=== PATIENT | female | born 1995 | race American Indian/Alaskan Native ===

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

== ENCOUNTER 2017-07-26 20:25 | Observation (INO) | payer MEDICAID ==
[2017-07-26] MEDS ORDERED: Albuterol/Ipratropium 3.0-0.5 MG/3 ML Neb Soln NEB ONE (20:43)
[2017-07-26] MEDS ORDERED: LORazepam 2 MG/ML Syringe IVPUSH ONE ×2 (20:45→22:04)
[2017-07-26] MEDS ORDERED: methylPREDNISolone Sodium Succinate 125 MG/2 ML SDV IVPUSH ONE (20:46)
--- NOTE | 2017-07-26 21:07 | EDM.PDOC ---
<Toyin Ervin - Last Filed: 07/26/17 21:15> ED HPI GENERAL MEDICAL PROBLEM - General Chief Complaint: Respiratory Problem Stated Complaint: [id number] SEVERE COUGHING AND CHEST PAIN Time Seen by Provider: 07/26/17 20:50 - Related Data Allergies Allergy/AdvReac Type Severity Reaction Status Date / Time amoxicillin trihydrate Allergy Intermediate Hives Verified 07/27/17 00:05 [From Augmentin] potassium clavulanate Allergy Intermediate Hives Verified 07/27/17 00:05 [From Augmentin] Penicillins Allergy Unknown Rash Verified 07/27/17 00:05 Home Meds: Home Meds Albuterol [IJD: Albuterol] 2.5 mg INH Q4H PRN 10/03/16 [History] Albuterol [Proventil HFA] 2 puff INH Q4H PRN 10/03/16 [History] medroxyPROGESTERone Acetate [Depo-Provera] 150 mg IM ASDIRECTED 10/03/16 [ History] Course - Vital Signs Last Recorded V/S: Last Vital Signs Temp 36.7 C 07/27/17 00:34 Pulse 121 H 07/27/17 00:34 Resp 24 H 07/27/17 00:34 BP 108/53 L 07/27/17 00:34 Pulse Ox 96 07/27/17 00:34 - Orders/Labs/Meds Orders: Active Orders 24 hr Category Date Time Status RT Aerosol Therapy [RC] ASDIRECTED Care 07/26/17 20:44 Active INFLUENZA A+B AG SCREEN [RM] Stat Lab 07/26/17 20:53 Ordered Labs: Laboratory Tests 07/26/17 07/26/17 07/26/17 Range/Units 21:04 21:04 21:04 WBC 8.6 (5.0-10.0) 10^3/uL RBC 5.07 (4.2-5.4) 10^6/uL Hgb 14.7 (12.0-16.0) g/dL Hct 44.9 (37.0-47.0) % MCV 88.6 D (80-100) fL MCH 29.0 (27.0-34.0) pg MCHC 32.7 L (33.0-35.0) g/dL Plt Count 240 (150-450) 10^3/uL Neut % (Auto) 58.4 (42.2-75.2) % Lymph % (Auto) 26.0 (20.5-50.1) % Lucas % (Auto) 11.4 H (2-8) % Eos % (Auto) 3.7 H (1.0-3.0) % Baso % (Auto) 0.5 (0.0-1.0) % D-Dimer, Quantitative 116 (0-400) ng/mL Sodium 137 (135-145) mmol/L Potassium 3.7 (3.6-5.0) mmol/L Chloride 106 (101-111) mmol/L Carbon Dioxide 22.0 (21.0-31.0) mmol/L Anion Gap 12.7 BUN 8 (7-18) mg/dL Creatinine 0.7 (0.6-1.3) mg/dL Est Cr Clr Drug Dosing 101.39 mL/min Estimated GFR (MDRD) > 60 BUN/Creatinine Ratio 11.42 Glucose 85 (74-105) mg/dL Calcium 9.0 (8.4-10.2) mg/dl Total Bilirubin 0.3 (0.2-1.0) mg/dL AST 32 (10-42) IU/L ALT 23 (10-60) IU/L Alkaline Phosphatase 96 (42-121) IU/L Total Protein 8.0 (6.7-8.2) g/dl Albumin 4.4 (3.2-5.5) g/dl Globulin 3.6 Albumin/Globulin Ratio 1.22 Meds: Medications Discontinued Medications Generic Name Dose Route Start Last Admin Trade Name Pedroq PRN Reason Stop Dose Admin Albuterol/Ipratropium 3 ml 07/26/17 20:43 07/26/17 21:11 Duoneb 3.0-0.5 Mg/3 Ml NEB 07/26/17 20:44 3 ml ONETIME ONE Administration Glucagon 1 mg 07/26/17 22:18 07/26/17 22:27 Glucagen IM 07/26/17 22:19 1 mg ONETIME ONE Administration Lorazepam 1 mg 07/26/17 20:45 07/26/17 21:13 Ativan IVPUSH 07/26/17 20:46 1 mg ONETIME ONE Administration Lorazepam 1 mg 07/26/17 22:04 07/26/17 22:15 Ativan IVPUSH 07/26/17 22:05 1 mg ONETIME ONE Administration Methylprednisolone Sodium Succinate 125 mg 07/26/17 20:46 07/26/17 21:14 Solu-Medrol IVPUSH 07/26/17 20:47 125 mg ONETIME ONE Administration Promethazine HCl/Codeine 5 ml 07/26/17 21:53 07/26/17 21:57 Phenergan With Codeine PO 07/26/17 21:54 5 ml ONETIME ONE Administration Sodium Chloride 3 ml 07/26/17 21:42 07/26/17 21:57 Sodium Chloride 0.9% INH 07/26/17 21:43 3 ml ONETIME ONE Administration Departure - Departure Disposition: Admitted As Inpatient 68 Clinical Impression: Bronchospasm - Discharge Information <Naresh Guzman - Last Filed: 07/27/17 01:03> ED HPI GENERAL MEDICAL PROBLEM - General Source of Information: Reports: Patient History Limitations: Reports: No Limitations - History of Present Illness INITIAL COMMENTS - FREE TEXT/NARRATIVE: Patient presents with four days of illness, coughing, rhinorrhea, pleuritic chest pain. She has a history of asthma and has been taking her albuterol nebulizer with minimal relief. This evening she noted worsening shortness of breath and cough. In the waiting room she had a coughing attack and went to lie on the floor. She was breathing. She was awakened with a sternal rub and was immediately alert and oriented. She has not had fever at home. No other complaints today. 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: Musculoskeletal History: Reports: None Neurological History: Reports: None Psychiatric History: Reports: ADHD, Anxiety, Depression, Panic Attack, PTSD Endocrine/Metabolic History: Reports: None Hematologic History: Reports: None Immunologic History: Reports: None Oncologic (Cancer) History: Reports: None Dermatologic History: Reports: None - Infectious Disease History Infectious Disease History: Reports: None - Past Surgical History Head Surgeries/Procedures: Reports: None Female Surgical History: Reports: Section Social & Family History - Family History Family Medical History: Noncontributory Cardiac: Reports: Hypertension (dad) Endocrine/Metabolic: Reports: Diabetes, type II Other Endocrine/Metabolic Family History: Mom and dad - Tobacco Use Smoking Status *Q: Light Tobacco Smoker Years of Tobacco use: 7 Packs/Tins Daily: 0 Used Tobacco, but Quit: Yes Month/Year Tobacco Last Used: nov 2015 Second Hand Smoke Exposure: No - Caffeine Use Caffeine Use: Reports: Soda, Tea - Alcohol Use Days Per Week of Alcohol Use: 0 - Recreational Drug Use Recreational Drug Use: No - Living Situation & Occupation Living situation: Reports: with Significant Other Occupation: Employed ED ROS GENERAL - Review of Systems Review Of Systems: ROS reveals no pertinent complaints other than HPI. ED EXAM, GENERAL - Physical Exam Exam: See Below Exam Limited By: Respiratory Distress General Appearance: Alert, WD/WN, Mild Distress Ears: Normal External Exam, Hearing Grossly Normal Nose: Normal Inspection, Normal Mucosa, No Blood Throat/Mouth: Normal Inspection, Normal Lips, Normal Teeth, Normal Oropharynx Head: Atraumatic, Normocephalic Neck: Normal Inspection, Supple, Non-Tender Respiratory/Chest: Other (Severe paroxysms of coughing. ). No: Crackles, Rales , Wheezing Cardiovascular: Normal Peripheral Pulses, No Edema, No Murmur, Tachycardia GI/Abdominal: Normal Bowel Sounds, Soft, Non-Tender, No Distention Back Exam: Normal Inspection Extremities: Normal Inspection, Non-Tender Neurological: Alert, Oriented, CN II-XII Intact Psychiatric: Normal Affect, Normal Mood Skin Exam: Warm, Dry, Intact Lymphatic: No Adenopathy Course - Orders/Labs/Meds Labs: Laboratory Tests 07/26/17 07/26/17 07/26/17 Range/Units 21:04 21:04 21:04 WBC 8.6 (5.0-10.0) 10^3/uL RBC 5.07 (4.2-5.4) 10^6/uL Hgb 14.7 (12.0-16.0) g/dL Hct 44.9 (37.0-47.0) % MCV 88.6 D (80-100) fL MCH 29.0 (27.0-34.0) pg MCHC 32.7 L (33.0-35.0) g/dL Plt Count 240 (150-450) 10^3/uL Neut % (Auto) 58.4 (42.2-75.2) % Lymph % (Auto) 26.0 (20.5-50.1) % Lucas % (Auto) 11.4 H (2-8) % Eos % (Auto) 3.7 H (1.0-3.0) % Baso % (Auto) 0.5 (0.0-1.0) % D-Dimer, Quantitative 116 (0-400) ng/mL Sodium 137 (135-145) mmol/L Potassium 3.7 (3.6-5.0) mmol/L Chloride 106 (101-111) mmol/L Carbon Dioxide 22.0 (21.0-31.0) mmol/L Anion Gap 12.7 BUN 8 (7-18) mg/dL Creatinine 0.7 (0.6-1.3) mg/dL Est Cr Clr Drug Dosing 101.39 mL/min Estimated GFR (MDRD) > 60 BUN/Creatinine Ratio 11.42 Glucose 85 (74-105) mg/dL Calcium 9.0 (8.4-10.2) mg/dl Total Bilirubin 0.3 (0.2-1.0) mg/dL AST 32 (10-42) IU/L ALT 23 (10-60) IU/L Alkaline Phosphatase 96 (42-121) IU/L Total Protein 8.0 (6.7-8.2) g/dl Albumin 4.4 (3.2-5.5) g/dl Globulin 3.6 Albumin/Globulin Ratio 1.22 Departure - Departure Time of Disposition: 23:45 Condition: Fair
[2017-07-26] MEDS ORDERED: Sodium Chloride 0.9% Inhalation Soln 3 ML Neb INH ONE (21:42)
[2017-07-26 21:47] LABS: CHLORIDE,CL 106 mmol/L (101-111); SODIUM,NA 137 mmol/L (135-145)
[2017-07-26] MEDS ORDERED: Codeine/Promethazine 10-6.25 MG/5 ML Syrup 5 ML UD Cup PO ONE (21:53)
[2017-07-26] MEDS ORDERED: Glucagon,Human Recombinant 1 MG Vial IM ONE (22:18)
[2017-07-27] MEDS ORDERED: Acetaminophen 325 MG Tab PO PRN (01:00)
[2017-07-27] MEDS ORDERED: Morphine 2 MG/ML Syringe IVPUSH PRN (01:00)
[2017-07-27] MEDS ORDERED: Sodium Chloride 0.9% 1,000 ML IV SCH (01:00)
--- NOTE | 2017-07-27 01:12 | PCM.HP ---
H&P History of Present Illness - General Date of Service: 07/27/17 Admit Problem/Dx: Admission Diagnosis/Problem Admission Diagnosis/Problem Asthma attack Source of Information: Patient History Limitations: Reports: No Limitations - History of Present Illness Initial Comments - Free Text/Narative: The patient is a 22-year-old female with medical history of asthma. She presented to the emergency room with complaint of cough which has been going on for the past 4 days. It is associated with wheezing and shortness of breath. She did have associated fever today with temperature of about 100.4. Prior to onset of her cough her child was coughing for about 4 days. She denies chest pain. No headache no bladder physician. No dysuria or frequency or micturition. Headache Pain Score (Numeric/FACES): 10 - Related Data Allergies/Adverse Reactions: Allergies Allergy/AdvReac Type Severity Reaction Status Date / Time amoxicillin trihydrate Allergy Intermediate Hives Verified 07/27/17 00:05 [From Augmentin] potassium clavulanate Allergy Intermediate Hives Verified 07/27/17 00:05 [From Augmentin] Penicillins Allergy Unknown Rash Verified 07/27/17 00:05 Home Medications: Home Meds Albuterol [IJD: Albuterol] 2.5 mg INH Q4H PRN 10/03/16 [History] Albuterol [Proventil HFA] 2 puff INH Q4H PRN 10/03/16 [History] medroxyPROGESTERone Acetate [Depo-Provera] 150 mg IM ASDIRECTED 10/03/16 [ History] Past Medical History - Past Health History Medical/Surgical History: Denies Medical/Surgical History HEENT History: Reports: None Other HEENT History: wishdom teeth Cardiovascular History: Reports: None Respiratory History: Reports: Asthma Gastrointestinal History: Reports: Cholelithiasis Genitourinary History: Reports: None 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 OB/BYN History: one Musculoskeletal History: Reports: None Neurological History: Reports: None Psychiatric History: Reports: ADHD, Anxiety, Depression, Panic Attack, PTSD Endocrine/Metabolic History: Reports: None Hematologic History: Reports: None Immunologic History: Reports: None Oncologic (Cancer) History: Reports: None Dermatologic History: Reports: None - Infectious Disease History Infectious Disease History: Reports: None - Past Surgical History Head Surgeries/Procedures: Reports: None Female Surgical History: Reports: Section Social & Family History - Family History Family Medical History: Noncontributory Cardiac: Reports: Hypertension (dad) Neurological: Reports: Alzheimers Disease Endocrine/Metabolic: Reports: Diabetes, type II Other Endocrine/Metabolic Family History: Mom and dad Oncologic: Reports: Breast - Tobacco Use Smoking Status *Q: Light Tobacco Smoker Years of Tobacco use: 7 Packs/Tins Daily: 0 Used Tobacco, but Quit: Yes Month/Year Tobacco Last Used: nov 2015 Second Hand Smoke Exposure: No - Caffeine Use Caffeine Use: Reports: Soda, Tea - Alcohol Use Days Per Week of Alcohol Use: 0 - Recreational Drug Use Recreational Drug Use: No - Living Situation & Occupation Living situation: Reports: with Significant Other Occupation: Employed H&P Review of Systems - Review of Systems: Review Of Systems: See Below General: Reports: Fever HEENT: Reports: No Symptoms Pulmonary: Reports: Shortness of Breath, Cough Cardiovascular: Reports: No Symptoms Gastrointestinal: Reports: No Symptoms Genitourinary: Reports: No Symptoms Musculoskeletal: Reports: No Symptoms Skin: Reports: No Symptoms Psychiatric: Reports: No Symptoms Neurological: Reports: No Symptoms Exam - Exam Exam: See Below - Vital Signs Vital Signs: Last Vital Signs Temp 36.7 C 07/27/17 00:34 Pulse 121 H 07/27/17 00:34 Resp 24 H 07/27/17 00:34 BP 108/53 L 07/27/17 00:34 Pulse Ox 96 07/27/17 00:34 Weight: 90.492 kg - Exam General: Alert, Oriented, Cooperative HEENT: PERRLA, Hearing Intact, Mucosa Moist & [place], Nares Patent, Normal Nasal Septum, Posterior Pharynx Clear, Conjunctiva Clear, EOMI, EACs Clear, TMs Clear Neck: Supple, Trachea Midline, 2 Lungs: Decreased Breath Sounds, Rhonchi Cardiovascular: Regular Rate, Regular Rhythm Back Exam: Normal Inspection, Full Range of Motion, NT Extremities: Normal Inspection, Normal Range of Motion, Non-Tender, No Pedal Edema, Normal Capillary Refill Skin: Warm, Dry, Intact Neurological: Cranial Nerves Intact, Reflexes Equal Bilateral Psychiatric: Alert, Normal Affect, Normal Mood - Patient Data Lab Results Last 24 hrs: Laboratory Results - last 24 hr 07/26/17 07/26/17 07/26/17 Range/Units 21:04 21:04 21:04 WBC 8.6 (5.0-10.0) 10^3/uL RBC 5.07 (4.2-5.4) 10^6/uL Hgb 14.7 (12.0-16.0) g/dL Hct 44.9 (37.0-47.0) % MCV 88.6 D (80-100) fL MCH 29.0 (27.0-34.0) pg MCHC 32.7 L (33.0-35.0) g/dL Plt Count 240 (150-450) 10^3/uL Neut % (Auto) 58.4 (42.2-75.2) % Lymph % (Auto) 26.0 (20.5-50.1) % Craig % (Auto) 11.4 H (2-8) % Eos % (Auto) 3.7 H (1.0-3.0) % Baso % (Auto) 0.5 (0.0-1.0) % D-Dimer, Quantitative 116 (0-400) ng/mL Sodium 137 (135-145) mmol/L Potassium 3.7 (3.6-5.0) mmol/L Chloride 106 (101-111) mmol/L Carbon Dioxide 22.0 (21.0-31.0) mmol/L Anion Gap 12.7 BUN 8 (7-18) mg/dL Creatinine 0.7 (0.6-1.3) mg/dL Est Cr Clr Drug Dosing 101.39 mL/min Estimated GFR (MDRD) > 60 BUN/Creatinine Ratio 11.42 Glucose 85 (74-105) mg/dL Calcium 9.0 (8.4-10.2) mg/dl Total Bilirubin 0.3 (0.2-1.0) mg/dL AST 32 (10-42) IU/L ALT 23 (10-60) IU/L Alkaline Phosphatase 96 (42-121) IU/L Total Protein 8.0 (6.7-8.2) g/dl Albumin 4.4 (3.2-5.5) g/dl Globulin 3.6 Albumin/Globulin Ratio 1.22 Result Diagrams: 07/26/17 21:04 07/26/17 21:04 Imer Results Last 24 hrs: Microbiology 07/26/17 20:53 Influenza Type A Antigen Screen - Final Nasal, Unspecified NEGATIVE INFLUENZA A VIRUS AG Influenza Type B Antigen Screen - Final NEGATIVE INFLUENZA B VIRUS AG Problem List Initiated/Reviewed/Updated: Yes Orders Last 24hrs: Active Orders 24 hr Category Date Time Status Patient Status [ADT] Routine ADT 07/27/17 01:00 Ordered Oxygen Therapy [RC] PRN Care 07/27/17 01:00 Ordered RT Aerosol Therapy [RC] ASDIRECTED Care 07/26/17 20:44 Active RT Aerosol Therapy [RC] ASDIRECTED Care 07/27/17 01:03 Ordered Up ad Tanika [RC] ASDIRECTED Care 07/27/17 01:00 Ordered VTE/DVT Education [RC] PER UNIT ROUTINE Care 07/27/17 01:00 Ordered Vital Signs [RC] Q4H Care 07/27/17 01:00 Ordered Regular Diet [DIET] Diet 07/27/17 Breakfast Ordered INFLUENZA A+B AG SCREEN [RM] Stat Lab 07/26/17 20:53 Ordered Acetaminophen [Tylenol] Med 07/27/17 01:00 Ordered 650 mg PO Q4H PRN Albuterol [Proventil Neb Soln] Med 07/27/17 09:00 Ordered 2.5 mg NEB QID Albuterol/Ipratropium [DuoNeb 3.0-0.5 MG/3 ML] Med 07/27/17 01:00 Ordered 3 ml NEB Q4H PRN Benzonatate [Tessalon Perles] Med 07/27/17 09:00 Ordered 100 mg PO BID Codeine/guaiFENesin [Robitussin AC] Med 07/27/17 01:00 Ordered 5 ml PO Q4H PRN Doxycycline [Vibramycin] Med 07/27/17 09:00 Ordered 100 mg PO Q12HR Heparin Sodium Med 07/27/17 06:00 Ordered 5,000 units SUBCUT Q8HR Morphine Med 07/27/17 01:00 Ordered 2 mg IVPUSH Q2H PRN Sodium Chloride 0.9% [Normal Saline] 1,000 ml Med 07/27/17 01:00 Ordered IV ASDIRECTED Resuscitation Status Routine Resus Stat 07/27/17 01:00 Ordered Assessment/Plan Comment:: The patient is a 22-year-old female with medical history of asthma. She presented to the emergency room with complaint of cough which has been going on for the past 4 days. It is associated with wheezing and shortness of breath. She did have associated fever today with temperature of about 100.4. Prior to onset of her cough her child was coughing for about 4 days. She denies chest pain. No headache no bladder physician. No dysuria or frequency or micturition. #. Acute exacerbation of asthma. The patient is coughing or wheezing. This is likely triggered by acute bronchitis #. Acute bronchitis. The patient has been coughing. He did have low-grade fever temperature 100.4. No pulmonary infiltrate noted. Plan: Admit patient to medical floor Comments aggressive nebulization with DuoNeb Start intravenous Solu Medrol 40 mg every 8 hours Start patient on cough syr Start patient Lotus Arthur Empiric antibiotics for bronchitis. I will use oral doxycycline
[2017-07-27] MEDS: methylPREDNISolone Sodium Succinate 40 MG/1 ML SDV IVPUSH SCH ×2 (01:47→12:51)
[2017-07-27] MEDS: Codeine/guaiFENesin 100-10 MG/5 ML Syrup 5 ML Cup PO PRN ×2 (01:49→10:17)
[2017-07-27] MEDS: Albuterol/Ipratropium 3.0-0.5 MG/3 ML Neb Soln NEB PRN ×2 (02:03→13:27)
[2017-07-27] MEDS: Heparin Sodium 5,000 Units/ML Vial SUBCUT SCH ×2 (06:08→14:19)
[2017-07-27] MEDS ORDERED: Albuterol 0.083% 2.5 MG/3 ML Neb Soln NEB SCH (07:00)
[2017-07-27] MEDS ORDERED: Benzonatate 100 MG Cap PO SCH (09:00)
[2017-07-27] MEDS ORDERED: Doxycycline 100 MG Cap PO SCH (09:00)
[2017-07-27] MEDS ORDERED: guaiFENesin 100 MG/5 ML Soln 5 ML UD Cup PO PRN (09:10)
[2017-07-27] MEDS ORDERED: Budesonide 0.5 MG/2 ML Neb Susp NEB SCH (09:15)
[2017-07-27] MEDS ORDERED: methylPREDNISolone Sodium Succinate 125 MG/2 ML SDV IVPUSH SCH (09:30)
[2017-07-27 10:54] VITALS: BP 111/61
[2017-07-27] MEDS ORDERED: Albuterol/Ipratropium 3.0-0.5 MG/3 ML Neb Soln NEB SCH (11:00)
[2017-07-27] MEDS ORDERED: Magnesium Sulfate/Water 2 GM in Premix Bag 1 BAG IV ONE (11:00)
== END 2017-07-27 15:05 | disposition left against medical advice (07) ==
LOC: DL.ED 20:25 → DL.MS 23:45
PROVIDERS: ADMIT Hospitalist; ATTEND Hospitalist
DX: J45.901 Unspecified asthma with (acute) exacerbation (principal); J20.9 Acute bronchitis, unspecified; F41.9 Anxiety disorder, unspecified; F32.9 Major depressive disorder, single episode, unspecified; Z88.0 Allergy status to penicillin; Z88.1 Allergy status to other antibiotic agents; Z88.8 Allergy status to other drugs, medicaments and biological substances; Z79.899 Other long term (current) drug therapy
CPT/HCPCS: 36415; 71045; 80053; 85025; 85379; 87804; 94640; 96372; 96374; 96375; 96376; 99284; A9270; J1610; J1644; J2060; J2920; J2930; J7030; J7620; 96365; 96366; G0378; J3475

== ENCOUNTER 2017-07-28 23:52 | Emergency (ER) | payer MEDICAID ==
[2017-07-29] MEDS: LORazepam 2 MG/ML Syringe IVPUSH ONE ×2 (00:10→00:42)
[2017-07-29] MEDS: Albuterol/Ipratropium 3.0-0.5 MG/3 ML Neb Soln NEB ONE (00:10)
[2017-07-29] MEDS: Sodium Chloride 0.9% 10 ML Syringe FLUSH PRN (00:11)
[2017-07-29] MEDS: diphenhydrAMINE 50 MG/ML SDV IVPUSH ONE (00:11)
[2017-07-29 00:17] VITALS: BP 132/86
[2017-07-29] MEDS: methylPREDNISolone Sodium Succinate 125 MG/2 ML SDV IVPUSH ONE (00:53)
[2017-07-29] MEDS: Albuterol 0.083% 2.5 MG/3 ML Neb Soln NEB ONE (00:53)
[2017-07-29] MEDS: Benzonatate 100 MG Cap PO ONE (01:05)
--- NOTE | 2017-08-10 23:27 | ER ---
HISTORY OF PRESENT ILLNESS: The patient is a 22-year-old female, who arrives POV to the emergency room with her mother coughing and very anxious, constantly hacking and coughing. She was worked up. She appears to cause herself to cough and hack even more. She had normal speech and when asked to quit coughing so much, she can quit coughing and talk enough to be angry and that she was asked to quit coughing and frustrated and then talk fairly long sentences, and then when she quits she began coughing again. Otherwise, she continues to cough. She had a chest x-ray 1 or 2 days ago, it showed bronchitis, no pneumonia. She has no fevers. She does use tobacco on a regular basis. No trauma. No falls. Denies . No bowel bladder changes. No bleeding. PAST MEDICAL HISTORY: Significant for: 1. [place] teeth being pulled. 2. Asthma. 3. Cholelithiasis. 4. . 5. . 6. ADHD. 7. Anxiety. 8. Depression. 9. Panic attacks. 10.PTSD. CURRENT MEDICATIONS: 1. Albuterol inhaler as well as an albuterol nebulizer, which she did take at home. 2. She is also on Depo-Provera to prevent . ALLERGIES: Augmentin, causes hives. SOCIAL HISTORY: She has been smoking cigarettes for 5 years. She denies any drug or alcohol use. REVIEW OF SYSTEMS: No fevers. No syncope. No trauma. No nausea or vomiting. No bowel or bladder changes or bleeding. Denies . Has a known bronchitis. She comes in coughing. OBJECTIVE: Vital Signs: She is afebrile. Temperature is 36.8, heart rate 125, blood pressure is 132/86, respiratory rate is 23, and she is anxious. Oxygen is 99% on room air. General: She appears in no respiratory distress if she would quit opting. She keeps clearing her throat and hacking a cough at the same time much of it is forced. She can speak in long sentences if stimulated to do so, such as when she gets angry, after which she returns to coughing. HEENT: She is normocephalic and atraumatic. HEENT exam is unremarkable. Conjunctivae are clear. Oropharynx moist. Airway is clearly patent. Neck: Full range of motion. No lymphadenopathy. No nuchal rigidity. Chest: Clear. She does not have any wheezing. She had a frequent coughing. CV: RRR. ABDOMEN: Soft and benign. Back: No CVAT. Skin: Clear. EMERGENCY ROOM COURSE: She was given Tessalon Perles, Solu-Medrol IV, 2 albuterol nebs, she was given Benadryl, and also lorazepam. She eventually calmed down, relaxed, her coughing subsided and she felt markedly improved. A repeat chest x-ray was not performed as she just had one 1 or 2 days ago. ASSESSMENT: 1. Bronchospasm with acute bronchitis. 2. Panic attacks. 3. Ongoing tobacco abuse. PLAN: Advised the patient to stay with family. She was discharged home in stable and improved condition. Continue with current medications and nebs. Recommend [id number] cough syrup and/or lozenges. Avoid any anxiety and stress. Close followup with her PCP. Recommend stopping tobacco. [facility] /[id number]
== END 2017-07-29 01:57 | disposition home or self-care (01) ==
LOC: DL.ED 23:52
DX: J20.9 Acute bronchitis, unspecified (principal); F41.0 Panic disorder [episodic paroxysmal anxiety]; F17.210 Nicotine dependence, cigarettes, uncomplicated; Z88.1 Allergy status to other antibiotic agents
CPT/HCPCS: 96374; 96375; 96376; 99283; A9270; J1200; J2060; J2930; J7050; J7620

== ENCOUNTER 2017-09-04 00:59 | Inpatient (IN) | payer MEDICAID ==
[2017-09-04] MEDS ORDERED: Albuterol/Ipratropium 3.0-0.5 MG/3 ML Neb Soln NEB ONE (01:14)
[2017-09-04] MEDS ORDERED: methylPREDNISolone Sodium Succinate 125 MG/2 ML SDV IVPUSH ONE (01:18)
[2017-09-04] MEDS ORDERED: Codeine/guaiFENesin 100-10 MG/5 ML Syrup 5 ML Cup PO ONE (01:20)
[2017-09-04] MEDS ORDERED: Albuterol 0.083% 2.5 MG/3 ML Neb Soln NEB ONE (01:46)
[2017-09-04] MEDS ORDERED: LORazepam 2 MG/ML Syringe IVPUSH ONE (01:47)
[2017-09-04] MEDS ORDERED: Sodium Chloride 0.9% 1,000 ML IV ONE (01:53)
[2017-09-04 01:55] LABS: CHLORIDE,CL 107 mmol/L (101-111); SODIUM,NA 140 mmol/L (135-145)
--- NOTE | 2017-09-04 01:58 | EDM.PDOC ---
ED HPI GENERAL MEDICAL PROBLEM - General Chief Complaint: Respiratory Problem Stated Complaint: CANT BREATHE [id number] Time Seen by Provider: 09/04/17 01:10 Source of Information: Reports: Patient History Limitations: Reports: No Limitations - History of Present Illness INITIAL COMMENTS - FREE TEXT/NARRATIVE: asthma sx started yesterday, nebs not helping. No fevers. Can't stop coughing. Mid-Sternal Chest Pain Score (Numeric/FACES): 7 Headache Pain Score (Numeric/FACES): 5 - Related Data Allergies Allergy/AdvReac Type Severity Reaction Status Date / Time amoxicillin trihydrate Allergy Intermediate Hives Verified 09/04/17 02:41 [From Augmentin] potassium clavulanate Allergy Intermediate Hives Verified 09/04/17 02:41 [From Augmentin] Penicillins Allergy Unknown Rash Verified 09/04/17 02:41 Home Meds: Home Meds Albuterol [IJD: Albuterol] 2.5 mg INH Q4H PRN 10/03/16 [History] Albuterol [Proventil HFA] 2 puff INH Q4H PRN 10/03/16 [History] medroxyPROGESTERone Acetate [Depo-Provera] 150 mg IM ASDIRECTED 10/03/16 [ History] Past Medical History - Past Health History Medical/Surgical History: Denies Medical/Surgical History HEENT History: Reports: None Other HEENT History: wishdom teeth Cardiovascular History: Reports: None Respiratory History: Reports: Asthma Gastrointestinal History: Reports: Cholelithiasis Genitourinary History: Reports: None [employer] TE[employer] History: Reports: Other OB/BYN History: one Musculoskeletal History: Reports: None Neurological History: Reports: None Psychiatric History: Reports: ADHD, Anxiety, Depression, Panic Attack, PTSD Endocrine/Metabolic History: Reports: None Hematologic History: Reports: None Immunologic History: Reports: None Oncologic (Cancer) History: Reports: None Dermatologic History: Reports: None - Infectious Disease History Infectious Disease History: Reports: None - Past Surgical History Head Surgeries/Procedures: Reports: None Female Surgical History: Reports: Section Social & Family History - Family History Family Medical History: Noncontributory Cardiac: Reports: Hypertension Neurological: Reports: Alzheimers Disease Endocrine/Metabolic: Reports: Diabetes, type II Other Endocrine/Metabolic Family History: Mom and dad Oncologic: Reports: Breast - Tobacco Use Smoking Status *Q: Never Smoker Second Hand Smoke Exposure: No - Caffeine Use Caffeine Use: Reports: Soda - Recreational Drug Use Recreational Drug Use: No - Living Situation & Occupation Living situation: Reports: with Significant Other Occupation: Employed ED ROS GENERAL - Review of Systems Review Of Systems: See Below Constitutional: Denies: Fever, Chills HEENT: Reports: Throat Pain (with cough) Respiratory: Reports: Wheezing, Cough Cardiovascular: Reports: No Symptoms GI/Abdominal: Reports: Nausea (from nebs). Denies: Vomiting Skin: Reports: No Symptoms Neurological: Reports: No Symptoms ED EXAM, GENERAL - Physical Exam Exam: See Below Exam Limited By: No Limitations General Appearance: Alert, Moderate Distress Eye Exam: Bilateral Eye: EOMI, PERRL Ears: Normal External Exam, Normal TMs Nose: Normal Inspection Throat/Mouth: Normal Inspection Head: Atraumatic, Normocephalic Neck: Normal Inspection, Full Range of Motion. No: Lymphadenopathy (L), Lymphadenopathy (R) Respiratory/Chest: Decreased Breath Sounds, Wheezing (inspiratory/ expiratory throughout), Other (frequent sough spasms) Cardiovascular: Normal Peripheral Pulses, Regular Rate, Rhythm, Tachycardia GI/Abdominal: Normal Bowel Sounds Neurological: Alert, Oriented, Normal Cognition Psychiatric: Normal Affect Skin Exam: Warm, Dry, Intact Course - Vital Signs Last Recorded V/S: Last Vital Signs Temp 97.8 F 09/07/17 12:11 Pulse 79 09/07/17 12:11 Resp 16 09/07/17 12:11 BP 127/61 09/07/17 12:11 Pulse Ox 93 L 09/07/17 12:11 - Orders/Labs/Meds Orders: Medication Orders Acetaminophen (Tylenol) 650 mg PO Q4H PRN PRN Reason: Pain (Mild 1-3)/fever Last Admin: 09/07/17 00:34 Dose: 650 mg Admin: 09/06/17 08:41 Dose: 650 mg Admin: 09/06/17 00:53 Dose: 650 mg Admin: 09/05/17 07:21 Dose: 650 mg Admin: 09/04/17 04:30 Dose: 650 mg Albuterol/Ipratropium (Duoneb 3.0-0.5 Mg/3 Ml) 3 ml NEB Q4H PRN PRN Reason: shortness of breath/wheezing Last Admin: 09/06/17 04:02 Dose: 3 ml Albuterol/Ipratropium (Duoneb 3.0-0.5 Mg/3 Ml) 3 ml NEB Q6HRRT [facility] Last Admin: 09/07/17 08:06 Dose: 3 ml Admin: 09/07/17 00:39 Dose: 3 ml Admin: 09/06/17 18:06 Dose: 3 ml Admin: 09/06/17 13:22 Dose: 3 ml Admin: 09/06/17 07:30 Dose: 3 ml Admin: 09/06/17 00:56 Dose: 3 ml Admin: 09/05/17 17:28 Dose: 3 ml Admin: 09/05/17 13:20 Dose: 3 ml Admin: 09/05/17 07:08 Dose: 3 ml Admin: 09/05/17 01:51 Dose: Not Given Admin: 09/04/17 18:10 Dose: 3 ml Admin: 09/04/17 14:08 Dose: 3 ml Admin: 09/04/17 08:48 Dose: 3 ml Azithromycin (Zithromax) 500 mg PO DAILY [facility] Last Admin: 09/07/17 08:18 Dose: 500 mg Admin: 09/06/17 08:43 Dose: 500 mg Admin: 09/05/17 08:39 Dose: 500 mg Benzocaine/Menthol (Cepacol Sore Throat) 1 lozenge MUCMEM Q4HR PRN PRN Reason: Sore Throat Last Admin: 09/07/17 09:16 Dose: 1 lozenge Admin: 09/06/17 12:48 Dose: 1 lozenge Admin: 09/05/17 23:15 Dose: 1 lozenge Admin: 09/05/17 18:33 Dose: 1 lozenge Admin: 09/05/17 13:38 Dose: 1 lozenge Guaifenesin/Phenylephrine HCl (Robitussin Dm) 10 ml PO Q6H PRN PRN Reason: Cough Last Admin: 09/07/17 00:36 Dose: 10 ml Admin: 09/06/17 18:12 Dose: 10 ml Admin: 09/06/17 11:03 Dose: 10 ml Admin: 09/06/17 03:36 Dose: 10 ml Admin: 09/05/17 19:36 Dose: 10 ml Admin: 09/05/17 13:38 Dose: 10 ml Admin: 09/05/17 07:21 Dose: 10 ml Admin: 09/04/17 14:29 Dose: 10 ml Admin: 09/04/17 08:48 Dose: 10 ml Ibuprofen (Motrin) 600 mg PO Q8H PRN PRN Reason: Headache Last Admin: 09/07/17 06:35 Dose: 600 mg Admin: 09/06/17 20:51 Dose: 600 mg Admin: 09/06/17 11:21 Dose: 600 mg Admin: 09/06/17 03:39 Dose: 600 mg Lorazepam (Ativan) 0.5 mg PO BID PRN PRN Reason: Anxiety Last Admin: 09/06/17 21:58 Dose: 0.5 mg Admin: 09/06/17 12:56 Dose: 0.5 mg Methylprednisolone Sodium Succinate (Solu-Medrol) 40 mg IVPUSH Q8H [facility] Last Admin: 09/07/17 08:25 Dose: 40 mg Admin: 09/07/17 00:30 Dose: 40 mg Admin: 09/06/17 16:05 Dose: 40 mg Mometasone Furoate/Formoterol Fumar (Dulera 100-5 Mcg) 2 puff IH BIDRT [facility] Last Admin: 09/07/17 08:17 Dose: 2 puff Admin: 09/06/17 18:12 Dose: 2 puff Admin: 09/06/17 07:49 Dose: 2 puff Admin: 09/05/17 17:10 Dose: 2 puff Admin: 09/05/17 06:13 Dose: 2 puff Admin: 09/04/17 18:09 Dose: 2 puff Admin: 09/04/17 08:48 Dose: 2 puff Montelukast Sodium (Singulair) 10 mg PO BEDTIME [facility] Last Admin: 09/06/17 20:52 Dose: 10 mg Admin: 09/05/17 20:36 Dose: 10 mg Admin: 09/05/17 01:50 Dose: Promethazine HCl/Codeine (Phenergan With Codeine) 5 ml PO Q6HR PRN PRN Reason: Cough Last Admin: 09/07/17 06:35 Dose: 5 ml Admin: 09/06/17 20:53 Dose: 5 ml Admin: 06/06/18 12:48 Dose: 5 ml Sodium Chloride (Saline Flush) 10 ml FLUSH ASDIRECTED PRN PRN Reason: Keep Vein Open Last Admin: 09/07/17 08:24 Dose: 10 ml Admin: 09/07/17 00:31 Dose: 10 ml Admin: 09/06/17 16:02 Dose: 10 ml Admin: 09/06/17 09:28 Dose: 10 ml Admin: 09/04/17 08:49 Dose: 10 ml Labs: Laboratory Tests 09/04/17 09/04/17 09/04/17 Range/Units 01:29 01:29 01:29 WBC 14.8 H (5.0-10.0) 10^3/uL RBC 4.99 (4.2-5.4) 10^6/uL Hgb 14.7 (12.0-16.0) g/dL Hct 43.4 (37.0-47.0) % MCV 87.0 (80-100) fL MCH 29.5 (27.0-34.0) pg MCHC 33.9 (33.0-35.0) g/dL Plt Count 262 (150-450) 10^3/uL Neut % (Auto) 57.3 (42.2-75.2) % Lymph % (Auto) 30.2 (20.5-50.1) % [place] % (Auto) 8.0 (2-8) % Eos % (Auto) 4.2 H (1.0-3.0) % Baso % (Auto) 0.3 (0.0-1.0) % Add Manual Diff Yes Neutrophils % (Manual) 58 (42-75) % Lymphocytes % (Manual) 31 (20-50) % Atypical Lymphs % 2 % Monocytes % (Manual) 6 (2-8) % Eosinophils % (Manual) 3 (1-3) % D-Dimer, Quantitative 374 (0-400) ng/mL Sodium 140 (135-145) mmol/L Potassium 3.4 L (3.6-5.0) mmol/L Chloride 107 (101-111) mmol/L Carbon Dioxide 24.0 (21.0-31.0) mmol/L Anion Gap 12.4 BUN 12 (7-18) mg/dL Creatinine 0.7 (0.6-1.3) mg/dL Est Cr Clr Drug Dosing 101.39 mL/min Estimated GFR (MDRD) > 60 BUN/Creatinine Ratio 17.14 Glucose 95 (74-105) mg/dL Lactic Acid (0.5-2.2) mmol/L Calcium 9.0 (8.4-10.2) mg/dl Total Bilirubin 0.3 (0.2-1.0) mg/dL AST 22 (10-42) IU/L ALT 18 (10-60) IU/L Alkaline Phosphatase 96 (42-121) IU/L Total Protein 7.9 (6.7-8.2) g/dl Albumin 4.3 (3.2-5.5) g/dl Globulin 3.6 Albumin/Globulin Ratio 1.19 // Range/Units 01:29 WBC (5.0-10.0) 10^3/uL RBC (4.2-5.4) 10^6/uL Hgb (12.0-16.0) g/dL Hct (37.0-47.0) % MCV (80-100) fL MCH (27.0-34.0) pg MCHC (33.0-35.0) g/dL Plt Count (150-450) 10^3/uL Neut % (Auto) (42.2-75.2) % Lymph % (Auto) (20.5-50.1) % [place] % (Auto) (2-8) % Eos % (Auto) (1.0-3.0) % Baso % (Auto) (0.0-1.0) % Add Manual Diff Neutrophils % (Manual) (42-75) % Lymphocytes % (Manual) (20-50) % Atypical Lymphs % % Monocytes % (Manual) (2-8) % Eosinophils % (Manual) (1-3) % D-Dimer, Quantitative (0-400) ng/mL Sodium (135-145) mmol/L Potassium (3.6-5.0) mmol/L Chloride (101-111) mmol/L Carbon Dioxide (21.0-31.0) mmol/L Anion Gap BUN (7-18) mg/dL Creatinine (0.6-1.3) mg/dL Est Cr Clr Drug Dosing mL/min Estimated GFR (MDRD) BUN/Creatinine Ratio Glucose (74-105) mg/dL Lactic Acid 1.4 (0.5-2.2) mmol/L Calcium (8.4-10.2) mg/dl Total Bilirubin (0.2-1.0) mg/dL AST (10-42) IU/L ALT (10-60) IU/L Alkaline Phosphatase (42-121) IU/L Total Protein (6.7-8.2) g/dl Albumin (3.2-5.5) g/dl Globulin Albumin/Globulin Ratio Meds: Medications Generic Name Dose Route Start Last Admin Trade Name Freq PRN Reason Stop Dose Admin Acetaminophen 650 mg 09/04/17 04:06 09/07/17 00:34 Tylenol PO 650 mg Q4H PRN Administration Pain (Mild 1-3)/fever Albuterol/Ipratropium 3 ml 09/04/17 04:06 09/06/17 04:02 Duoneb 3.0-0.5 Mg/3 Ml NEB 3 ml Q4H PRN Administration shortness of breath/wheezing Albuterol/Ipratropium 3 ml 09/04/17 07:00 09/07/17 08:06 Duoneb 3.0-0.5 Mg/3 Ml NEB 3 ml Q6HRRT [facility] Administration Azithromycin 500 mg 09/05/17 09:00 09/07/17 08:18 Zithromax PO 500 mg DAILY [facility] Administration Benzocaine/Menthol 1 lozenge 09/05/17 13:26 09/07/17 09:16 Cepacol Sore Throat MUCMEM 1 lozenge Q4HR PRN Administration Sore Throat Guaifenesin/Phenylephrine HCl 10 ml 09/04/17 04:29 09/07/17 00:36 Robitussin Dm PO 10 ml Q6H PRN Administration Cough Ibuprofen 600 mg 09/05/17 08:23 09/07/17 06:35 Motrin PO 600 mg Q8H PRN Administration Headache Lorazepam 0.5 mg 09/06/17 12:09 09/06/17 21:58 Ativan PO 0.5 mg BID PRN Administration Anxiety Methylprednisolone Sodium Succinate 40 mg 09/06/17 16:00 09/07/17 08:25 Solu-Medrol IVPUSH 40 mg Q8H [facility] Administration Mometasone Furoate/Formoterol Fumar 2 puff 09/04/17 07:00 06/07/18 08:17 Dulera 100-5 Mcg IH 2 puff BIDRT [facility] Administration Montelukast Sodium 10 mg 09/04/17 21:00 09/06/17 20:52 Singulair PO 10 mg BEDTIME [facility] Administration Promethazine HCl/Codeine 5 ml 09/06/17 11:08 09/07/17 06:35 Phenergan With Codeine PO 5 ml Q6HR PRN Administration Cough Sodium Chloride 10 ml 09/04/17 04:06 09/07/17 08:24 Saline Flush FLUSH 10 ml ASDIRECTED PRN Administration Keep Vein Open Discontinued Medications Generic Name Dose Route Start Last Admin Trade Name Freq PRN Reason Stop Dose Admin Albuterol 2.5 mg 09/04/17 01:46 09/04/17 01:49 Proventil Neb Soln NEB 09/04/17 01:47 2.5 mg ONETIME ONE Administration Albuterol/Ipratropium 3 ml 09/04/17 01:14 09/04/17 01:20 Duoneb 3.0-0.5 Mg/3 Ml NEB 09/04/17 01:15 3 ml ONETIME ONE Administration Azithromycin 500 mg 09/04/17 04:15 09/04/17 04:31 Zithromax PO 500 mg DAILY [facility] Administration Guaifenesin/Codeine Phosphate 5 ml 09/04/17 01:20 09/04/17 01:31 Robitussin Ac PO 09/04/17 01:21 5 ml ONETIME ONE Administration Sodium Chloride 1,000 mls @ 999 mls/hr 09/04/17 01:53 09/04/17 03:17 Normal Saline IV 09/04/17 02:53 Infused .BOLUS ONE Infusion Lorazepam 0.5 mg 09/04/17 01:47 09/04/17 01:58 Ativan IVPUSH 09/04/17 01:48 0.5 mg ONETIME ONE Administration Methylprednisolone Sodium Succinate 125 mg 09/04/17 01:18 09/04/17 01:33 Solu-Medrol IVPUSH 09/04/17 01:19 125 mg ONETIME ONE Administration Methylprednisolone Sodium Succinate 125 mg 09/04/17 04:15 09/04/17 05:06 Solu-Medrol IVPUSH Not Given Q8H [facility] Methylprednisolone Sodium Succinate 125 mg 09/04/17 09:00 09/05/17 01:51 Solu-Medrol IVPUSH Not Given Q8H [facility] Methylprednisolone Sodium Succinate 80 mg 09/05/17 09:00 09/06/17 00:53 Solu-Medrol IVPUSH 80 mg Q8H [facility] Administration Methylprednisolone Sodium Succinate 60 mg 09/06/17 09:00 09/06/17 09:31 Solu-Medrol IVPUSH 60 mg Q8H [facility] Administration Ondansetron HCl 4 mg 09/04/17 04:12 09/06/17 04:19 Zofran IV 4 mg Q4H PRN Administration Nausea/Vomiting Potassium Chloride 40 meq 09/04/17 04:14 09/04/17 04:31 Klor-Con 10 PO 09/04/17 04:15 40 meq ONETIME ONE Administration - Radiology Interpretation Free Text/Narrative:: CXR - Re-Assessments/Exams Free Text/Narrative Re-Assessment/Exam: 09/04/17 02:20 continued cough episodic, mild brief improvement with nebs. Dr. Noriega, accepting of patient for further management of asthma exacerbation Departure - Departure Time of Disposition: 02:20 Disposition: Refer to Observation Condition: Good Clinical Impression: Asthma with acute exacerbation Qualifiers: Asthma severity: moderate Asthma persistence: persistent Qualified Code(s): J45.41 - Moderate persistent asthma with (acute) exacerbation - Discharge Information
[2017-09-04] MEDS ORDERED: Albuterol/Ipratropium 3.0-0.5 MG/3 ML Neb Soln NEB PRN (04:06)
[2017-09-04] MEDS ORDERED: Ondansetron 4 MG/2 ML SDV IV PRN (04:12)
[2017-09-04] MEDS ORDERED: Potassium Chloride 10 MEQ Tab.ER PO ONE (04:14)
[2017-09-04] MEDS ORDERED: methylPREDNISolone Sodium Succinate 125 MG/2 ML SDV IVPUSH SCH (04:15)
[2017-09-04] MEDS ORDERED: Azithromycin 250 MG Tab PO SCH (04:15)
--- NOTE | 2017-09-04 04:20 | PCM.HP ---
H&P History of Present Illness - General Date of Service: 09/04/17 Admit Problem/Dx: Admission Diagnosis/Problem Admission Diagnosis/Problem Asthma attack Source of Information: Patient History Limitations: Reports: No Limitations - History of Present Illness Initial Comments - Free Text/Narative: 22-year-old female with a past medical history of asthma, past smoker, who presents with shortness of breath and cough of one day duration. The patient has a history of [id number] persistent asthma, having 2-3 symptoms per week including nighttime symptoms. She has had at least 2 intubations in the past 2 years. Shortness of breath and cough started yesterday morning, and persisted throughout the day. Cough is dry, does not have sputum production. She also reports a fever, temperature was up to 100.2 Fahrenheit, measured at home. Cough was associated with nausea and vomiting. Due to persistence of symptoms, and difficulty speaking due to symptoms, patient came to the emergency room. In the ED she was given nebulizer treatments, IV steroids and symptoms improved. Did not have substantial oxygen desaturations in the ED. SH: She is a past smoker, quit smoking in March 2013. Associated Symptoms: Reports: Cough, Shortness of Breath Mid-Sternal Chest Pain Score (Numeric/FACES): 7 Headache Pain Score (Numeric/FACES): 8 - Related Data Allergies/Adverse Reactions: Allergies Allergy/AdvReac Type Severity Reaction Status Date / Time amoxicillin trihydrate Allergy Intermediate Hives Verified 09/04/17 02:41 [From Augmentin] potassium clavulanate Allergy Intermediate Hives Verified 09/04/17 02:41 [From Augmentin] Penicillins Allergy Unknown Rash Verified 09/04/17 02:41 Home Medications: Home Meds Albuterol [IJD: Albuterol] 2.5 mg INH Q4H PRN 10/03/16 [History] Albuterol [Proventil HFA] 2 puff INH Q4H PRN 10/03/16 [History] medroxyPROGESTERone Acetate [Depo-Provera] 150 mg IM ASDIRECTED 10/03/16 [ History] Past Medical History - Past Health History Medical/Surgical History: Denies Medical/Surgical History HEENT History: Reports: None Other HEENT History: wishdom teeth Cardiovascular History: Reports: None Respiratory History: Reports: Asthma Gastrointestinal History: Reports: Cholelithiasis Genitourinary History: Reports: None 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: Other OB/BYN History: one Musculoskeletal History: Reports: Fracture Neurological History: Reports: Migraines Psychiatric History: Reports: ADHD, Anxiety, Depression, Panic Attack, PTSD Endocrine/Metabolic History: Reports: None Hematologic History: Reports: None Immunologic History: Reports: None Oncologic (Cancer) History: Reports: None Dermatologic History: Reports: Eczema - Infectious Disease History Infectious Disease History: Reports: None - Past Surgical History Head Surgeries/Procedures: Reports: None HEENT Surgical History: Reports: Other (See Below) Other HEENT Surgeries/Procedures: wisdom teeth removed Cardiovascular Surgical History: Reports: None Respiratory Surgical History: Reports: None GI Surgical History: Reports: None Female Surgical History: Reports: Section Endocrine Surgical History: Reports: None Musculoskeletal Surgical History: Reports: None Dermatological Surgical History: Reports: None Social & Family History - Family History Family Medical History: Noncontributory Cardiac: Reports: Hypertension Neurological: Reports: Alzheimers Disease Endocrine/Metabolic: Reports: Diabetes, type II Other Endocrine/Metabolic Family History: Mom and dad Oncologic: Reports: Breast - Tobacco Use Smoking Status *Q: Former Smoker Years of Tobacco use: 12 Packs/Tins Daily: 0.2 Used Tobacco, but Quit: Yes Month/Year Tobacco Last Used: March 2013 Second Hand Smoke Exposure: No - Caffeine Use Caffeine Use: Reports: Coffee - Recreational Drug Use Recreational Drug Use: No - Living Situation & Occupation Living situation: Reports: with Significant Other Occupation: Employed H&P Review of Systems - Review of Systems: Review Of Systems: See Below General: Reports: Fever HEENT: Reports: No Symptoms Pulmonary: Reports: Shortness of Breath, Cough Cardiovascular: Reports: No Symptoms Gastrointestinal: Reports: Nausea, Vomiting Genitourinary: Reports: No Symptoms Musculoskeletal: Reports: No Symptoms Neurological: Reports: No Symptoms Exam - Exam Exam: See Below - Vital Signs Vital Signs: Last Vital Signs Temp 36.6 C 09/04/17 02:39 Pulse 111 H 09/04/17 02:39 Resp 20 09/04/17 02:39 BP 105/52 L 09/04/17 02:39 Pulse Ox 98 09/04/17 02:39 Weight: 93.531 kg - Exam General: Alert, Oriented Neck: Supple Lungs: Wheezing Cardiovascular: Regular Rate GI/Abdominal Exam: Normal Bowel Sounds Extremities: Normal Inspection, Normal Range of Motion - Patient Data Lab Results Last 24 hrs: Laboratory Results - last 24 hr 09/04/17 09/04/17 09/04/17 Range/Units 01:29 01:29 01:29 WBC 14.8 H (5.0-10.0) 10^3/uL RBC 4.99 (4.2-5.4) 10^6/uL Hgb 14.7 (12.0-16.0) g/dL Hct 43.4 (37.0-47.0) % MCV 87.0 (80-100) fL MCH 29.5 (27.0-34.0) pg MCHC 33.9 (33.0-35.0) g/dL Plt Count 262 (150-450) 10^3/uL Neut % (Auto) 57.3 (42.2-75.2) % Lymph % (Auto) 30.2 (20.5-50.1) % [place] % (Auto) 8.0 (2-8) % Eos % (Auto) 4.2 H (1.0-3.0) % Baso % (Auto) 0.3 (0.0-1.0) % Add Manual Diff Yes Neutrophils % (Manual) 58 (42-75) % Lymphocytes % (Manual) 31 (20-50) % Atypical Lymphs % 2 % Monocytes % (Manual) 6 (2-8) % Eosinophils % (Manual) 3 (1-3) % D-Dimer, Quantitative 374 (0-400) ng/mL Sodium 140 (135-145) mmol/L Potassium 3.4 L (3.6-5.0) mmol/L Chloride 107 (101-111) mmol/L Carbon Dioxide 24.0 (21.0-31.0) mmol/L Anion Gap 12.4 BUN 12 (7-18) mg/dL Creatinine 0.7 (0.6-1.3) mg/dL Est Cr Clr Drug Dosing 101.39 mL/min Estimated GFR (MDRD) > 60 BUN/Creatinine Ratio 17.14 Glucose 95 (74-105) mg/dL Lactic Acid (0.5-2.2) mmol/L Calcium 9.0 (8.4-10.2) mg/dl Total Bilirubin 0.3 (0.2-1.0) mg/dL AST 22 (10-42) IU/L ALT 18 (10-60) IU/L Alkaline Phosphatase 96 (42-121) IU/L Total Protein 7.9 (6.7-8.2) g/dl Albumin 4.3 (3.2-5.5) g/dl Globulin 3.6 Albumin/Globulin Ratio 1.19 // Range/Units 01:29 WBC (5.0-10.0) 10^3/uL RBC (4.2-5.4) 10^6/uL Hgb (12.0-16.0) g/dL Hct (37.0-47.0) % MCV (80-100) fL MCH (27.0-34.0) pg MCHC (33.0-35.0) g/dL Plt Count (150-450) 10^3/uL Neut % (Auto) (42.2-75.2) % Lymph % (Auto) (20.5-50.1) % [place] % (Auto) (2-8) % Eos % (Auto) (1.0-3.0) % Baso % (Auto) (0.0-1.0) % Add Manual Diff Neutrophils % (Manual) (42-75) % Lymphocytes % (Manual) (20-50) % Atypical Lymphs % % Monocytes % (Manual) (2-8) % Eosinophils % (Manual) (1-3) % D-Dimer, Quantitative (0-400) ng/mL Sodium (135-145) mmol/L Potassium (3.6-5.0) mmol/L Chloride (101-111) mmol/L Carbon Dioxide (21.0-31.0) mmol/L Anion Gap BUN (7-18) mg/dL Creatinine (0.6-1.3) mg/dL Est Cr Clr Drug Dosing mL/min Estimated GFR (MDRD) BUN/Creatinine Ratio Glucose (74-105) mg/dL Lactic Acid 1.4 (0.5-2.2) mmol/L Calcium (8.4-10.2) mg/dl Total Bilirubin (0.2-1.0) mg/dL AST (10-42) IU/L ALT (10-60) IU/L Alkaline Phosphatase (42-121) IU/L Total Protein (6.7-8.2) g/dl Albumin (3.2-5.5) g/dl Globulin Albumin/Globulin Ratio Result Diagrams: 09/04/17 01:29 09/04/17 01:29 Imaging Impressions Last 24 hrs: Chest1 x-ray: Left lower lobe opacity. Problem List Initiated/Reviewed/Updated: Yes Orders Last 24hrs: Active Orders 24 hr Category Date Time Status Patient Status [ADT] Routine ADT 09/04/17 04:06 Ordered Ambulate [RC] ASDIRECTED Care 09/04/17 04:06 Ordered Ambulate [RC] PER UNIT ROUTINE Care 09/04/17 04:07 Ordered Oxygen Therapy [RC] PRN Care 09/04/17 04:06 Ordered RT Aerosol Therapy [RC] ASDIRECTED Care 09/04/17 01:14 Active RT Aerosol Therapy [RC] ASDIRECTED Care 09/04/17 04:09 Ordered VTE/DVT Education [RC] PER UNIT ROUTINE Care 09/04/17 04:06 Ordered Vital Signs [RC] Q4H Care 09/04/17 04:06 Ordered Regular Diet [DIET] Diet 09/04/17 Breakfast Ordered BASIC METABOLIC PANEL,BMP [CHEM] AM Lab 09/04/17 05:11 Ordered CBC W/O DIFF,HEMOGRAM [HEME] AM Lab 09/04/17 05:11 Ordered MAGNESIUM [CHEM] AM Lab 09/04/17 05:11 Ordered Acetaminophen [Tylenol] Med 09/04/17 04:06 Ordered 650 mg PO Q4H PRN Albuterol/Ipratropium [DuoNeb 3.0-0.5 MG/3 ML] Med 09/04/17 04:06 Ordered 3 ml NEB Q4H PRN Azithromycin [Zithromax] Med 09/04/17 04:15 Ordered 500 mg PO DAILY Mometasone/Formoterol [Dulera 100-5 MCG] Med 09/04/17 07:00 Ordered 2 puff IH BIDRT Montelukast [Singulair] Med 09/04/17 21:00 Ordered 10 mg PO BEDTIME Ondansetron [Zofran] Med 09/04/17 04:12 Ordered 4 mg IV Q4H PRN Potassium Chloride [Klor-Con 10] Med 09/04/17 04:14 Once 40 meq PO ONETIME ONE Sodium Chloride 0.9% [Saline Flush] Med 09/04/17 04:06 Ordered 10 ml FLUSH ASDIRECTED PRN methylPREDNISolone Sod Succ [Solu-MEDROL] Med 09/04/17 04:15 Ordered 125 mg IVPUSH Q8H Saline Lock Insert [OM.PC] Routine Oth 09/04/17 04:06 Ordered Resuscitation Status Routine Resus Stat 09/04/17 04:06 Ordered Medication Orders Acetaminophen (Tylenol) 650 mg PO Q4H PRN PRN Reason: Pain (Mild 1-3)/fever Albuterol/Ipratropium (Duoneb 3.0-0.5 Mg/3 Ml) 3 ml NEB Q4H PRN PRN Reason: shortness of breath/wheezing Azithromycin (Zithromax) 500 mg PO DAILY [facility]IN Methylprednisolone Sodium Succinate (Solu-Medrol) 125 mg IVPUSH Q8H MARVIN Mometasone Furoate/Formoterol Fumar (Dulera 100-5 Mcg) 2 puff IH BIDRT MARVIN Montelukast Sodium (Singulair) 10 mg PO BEDTIME MARVIN Ondansetron HCl (Zofran) 4 mg IV Q4H PRN PRN Reason: Nausea/Vomiting Potassium Chloride (Klor-Con 10) 40 meq PO ONETIME ONE Stop: 09/04/17 04:15 Sodium Chloride (Saline Flush) 10 ml FLUSH ASDIRECTED PRN PRN Reason: Keep Vein Open Assessment/Plan Comment:: 22-year-old female with a past medical history of asthma, past smoker, who presents with shortness of breath and cough of one day duration. #Asthma exacerbation The patient has a history of [id number] persistent asthma, having 2-3 symptoms per week including nighttime symptoms. The patient has a history of intubations, at least 2 intubations in the past 2 years. The patient is not on long-acting asthma control medications I discussed extensively with the patient on the need want to start long acting asthma control medications I also discussed extensively with the patient on the need to get a pulmonary function test and follow-up with the pulmonary clinic Current asthma exacerbation is likely being triggered by a lower respiratory tract infection (fever, left lower lobe infiltrate) -Duonebs every 6 hours and when necessary -IV Solu-Medrol 125 mg q8 hours -Start Dulera, Singulair -Azithromycin 500 mg daily for 3 days -Tylenol PRN -Zofran PRN -Oxygen as needed to keep sats above 92% -Respiratory therapy assess and treat DVT prophylaxis Low Cheryle score Ambulate patient
[2017-09-04] MEDS: Acetaminophen 325 MG Tab PO PRN (04:30)
[2017-09-04 06:54] LABS: CHLORIDE,CL 107 mmol/L (101-111); SODIUM,NA 139 mmol/L (135-145)
[2017-09-04] MEDS: guaiFENesin/Dextromethorphan 100-10 MG/5 ML Soln 5 ML Cup PO PRN ×2 (08:48→14:29)
[2017-09-04] MEDS: Formoterol/Mometasone 100-5 MCG 8.8 GM Inhaler IH SCH ×2 (08:48→18:09)
[2017-09-04] MEDS: Albuterol/Ipratropium 3.0-0.5 MG/3 ML Neb Soln NEB SCH ×3 (08:48→18:10)
[2017-09-04] MEDS: Sodium Chloride 0.9% 10 ML Syringe FLUSH PRN (08:49)
[2017-09-04] MEDS: methylPREDNISolone Sodium Succinate 125 MG/2 ML SDV IVPUSH SCH ×2 (08:49→18:10)
[2017-09-05] MEDS: Montelukast 10 MG Tab PO SCH ×2 (01:50→20:36)
[2017-09-05] MEDS: methylPREDNISolone Sodium Succinate 125 MG/2 ML SDV IVPUSH SCH ×3 (01:51→17:10)
[2017-09-05] MEDS: Albuterol/Ipratropium 3.0-0.5 MG/3 ML Neb Soln NEB SCH ×4 (01:51→17:28)
[2017-09-05] MEDS: Formoterol/Mometasone 100-5 MCG 8.8 GM Inhaler IH SCH ×2 (06:13→17:10)
[2017-09-05] MEDS: guaiFENesin/Dextromethorphan 100-10 MG/5 ML Soln 5 ML Cup PO PRN ×3 (07:21→19:36)
[2017-09-05] MEDS: Acetaminophen 325 MG Tab PO PRN (07:21)
[2017-09-05] MEDS: Azithromycin 250 MG Tab PO SCH (08:39)
[2017-09-05] MEDS: Benzocaine/Cetylpyridinium/Menthol Lozenge MUCMEM PRN ×3 (13:38→23:15)
--- NOTE | 2017-09-05 22:43 | PCM.PN ---
- General Info Date of Service: 09/05/17 Subjective Update: Patient being seen on her subsequent hospital day. nursing staff reports improved oxygen on room air. has been having some headaches with coughing. still not able to expectorate phlegm. was started on Dulera yesterday and nursing reports that she now knows how to use it. Functional Status: Reports: Tolerating Diet - Patient Data Vitals - Most Recent: Last Vital Signs Temp 98.3 F 09/05/17 20:49 Pulse 88 09/05/17 20:49 Resp 20 09/05/17 20:49 BP 129/97 H 09/05/17 20:49 Pulse Ox 98 09/05/17 20:49 Weight - Most Recent: 206 lb 3.2 oz I&O - Last 24 Hours: Intake & Output 09/05/17 09/05/17 09/05/17 06:59 14:59 22:59 Intake Total 500 900 200 Balance 500 900 200 Med Orders - Current: Current Medications Acetaminophen (Tylenol) 650 mg PO Q4H PRN PRN Reason: Pain (Mild 1-3)/fever Last Admin: 09/05/17 07:21 Dose: 650 mg Albuterol/Ipratropium (Duoneb 3.0-0.5 Mg/3 Ml) 3 ml NEB Q4H PRN PRN Reason: shortness of breath/wheezing Albuterol/Ipratropium (Duoneb 3.0-0.5 Mg/3 Ml) 3 ml NEB Q6HRRT [facility] Last Admin: 09/05/17 17:28 Dose: 3 ml Azithromycin (Zithromax) 500 mg PO DAILY [facility] Last Admin: 09/05/17 08:39 Dose: 500 mg Benzocaine/Menthol (Cepacol Sore Throat) 1 lozenge MUCMEM Q4HR PRN PRN Reason: Sore Throat Last Admin: 09/05/17 18:33 Dose: 1 lozenge Guaifenesin/Phenylephrine HCl (Robitussin Dm) 10 ml PO Q6H PRN PRN Reason: Cough Last Admin: 09/05/17 19:36 Dose: 10 ml Ibuprofen (Motrin) 600 mg PO Q8H PRN PRN Reason: Headache Methylprednisolone Sodium Succinate (Solu-Medrol) 80 mg IVPUSH Q8H [facility] Last Admin: 09/05/17 17:10 Dose: 80 mg Mometasone Furoate/Formoterol Fumar (Dulera 100-5 Mcg) 2 puff IH BIDRT [facility] Last Admin: 09/05/17 17:10 Dose: 2 puff Montelukast Sodium (Singulair) 10 mg PO BEDTIME [facility] Last Admin: 09/05/17 20:36 Dose: 10 mg Ondansetron HCl (Zofran) 4 mg IV Q4H PRN PRN Reason: Nausea/Vomiting Sodium Chloride (Saline Flush) 10 ml FLUSH ASDIRECTED PRN PRN Reason: Keep Vein Open Last Admin: 09/04/17 08:49 Dose: 10 ml Discontinued Medications Albuterol (Proventil Neb Soln) 2.5 mg NEB ONETIME ONE Stop: 09/04/17 01:47 Last Admin: 09/04/17 01:49 Dose: 2.5 mg Albuterol/Ipratropium (Duoneb 3.0-0.5 Mg/3 Ml) 3 ml NEB ONETIME ONE Stop: 09/04/17 01:15 Last Admin: 09/04/17 01:20 Dose: 3 ml Azithromycin (Zithromax) 500 mg PO DAILY [facility] Last Admin: 09/04/17 04:31 Dose: 500 mg Guaifenesin/Codeine Phosphate (Robitussin Ac) 5 ml PO ONETIME ONE Stop: 09/04/17 01:21 Last Admin: 09/04/17 01:31 Dose: 5 ml Sodium Chloride (Normal Saline) 1,000 mls @ 999 mls/hr IV .BOLUS ONE Stop: 09/04/17 02:53 Last Infusion: 09/04/17 03:17 Dose: Infused Lorazepam (Ativan) 0.5 mg IVPUSH ONETIME ONE Stop: 09/04/17 01:48 Last Admin: 09/04/17 01:58 Dose: 0.5 mg Methylprednisolone Sodium Succinate (Solu-Medrol) 125 mg IVPUSH ONETIME ONE Stop: 09/04/17 01:19 Last Admin: 09/04/17 01:33 Dose: 125 mg Methylprednisolone Sodium Succinate (Solu-Medrol) 125 mg IVPUSH Q8H [facility] Last Admin: 09/04/17 05:06 Dose: Not Given Methylprednisolone Sodium Succinate (Solu-Medrol) 125 mg IVPUSH Q8H [facility] Last Admin: 09/05/17 01:51 Dose: Not Given Potassium Chloride (Klor-Con 10) 40 meq PO ONETIME ONE Stop: 09/04/17 04:15 Last Admin: 09/04/17 04:31 Dose: 40 meq - Exam General: Alert, Oriented Lungs: Normal Respiratory Effort, Wheezing (both joy) Cardiovascular: Regular Rate, Regular Rhythm GI/Abdominal Exam: Normal Bowel Sounds, Soft, Non-Tender - My Orders Last 24 Hours: My Active Orders 09/05/17 08:23 Ibuprofen [Motrin] 600 mg PO Q8H PRN 09/05/17 09:00 methylPREDNISolone Sod Succ [Solu-MEDROL] 80 mg IVPUSH Q8H 09/05/17 13:26 Flutter Valve Therapy [RT Chest Physiotherapy] [RC] ASDIRECTED Benzocaine/Cetylpyrd/Menthol [Cepacol Sore Throat] 1 lozenge MUCMEM Q4HR PRN - Plan Plan:: 22-year-old female with a past medical history of asthma, past smoker, who presents with shortness of breath and cough of one day duration. #Asthma exacerbation clinically starting to get better cut down solumedrol 80mg IV ever 8 hours incentive spirometry and start flutter valved to help expectorate phlemg Headache from frequent coughing - on cough syrup - start motrin - no focal deficits DVT prophylaxis Low Cheryle score Ambulate patient
[2017-09-06] MEDS: methylPREDNISolone Sodium Succinate 125 MG/2 ML SDV IVPUSH SCH (00:53)
[2017-09-06] MEDS: Acetaminophen 325 MG Tab PO PRN ×2 (00:53→08:41)
[2017-09-06] MEDS: Albuterol/Ipratropium 3.0-0.5 MG/3 ML Neb Soln NEB SCH ×4 (00:56→18:06)
[2017-09-06] MEDS: guaiFENesin/Dextromethorphan 100-10 MG/5 ML Soln 5 ML Cup PO PRN ×3 (03:36→18:12)
[2017-09-06] MEDS: Ibuprofen 600 MG Tab PO PRN ×3 (03:39→20:51)
[2017-09-06] MEDS: Formoterol/Mometasone 100-5 MCG 8.8 GM Inhaler IH SCH ×2 (07:49→18:12)
[2017-09-06] MEDS: Azithromycin 250 MG Tab PO SCH (08:43)
[2017-09-06] MEDS ORDERED: methylPREDNISolone Sodium Succinate 125 MG/2 ML SDV IVPUSH SCH (09:00)
[2017-09-06] MEDS: Sodium Chloride 0.9% 10 ML Syringe FLUSH PRN ×2 (09:28→16:02)
[2017-09-06] MEDS: Benzocaine/Cetylpyridinium/Menthol Lozenge MUCMEM PRN (12:48)
[2017-09-06] MEDS: Codeine/Promethazine 10-6.25 MG/5 ML Syrup 5 ML UD Cup PO PRN ×2 (12:48→20:53)
[2017-09-06] MEDS: LORazepam 0.5 MG Tab PO PRN ×2 (12:56→21:58)
[2017-09-06] MEDS: methylPREDNISolone Sodium Succinate 40 MG/1 ML SDV IVPUSH SCH (16:05)
[2017-09-06] MEDS: Montelukast 10 MG Tab PO SCH (20:52)
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
[2017-09-07] MEDS: methylPREDNISolone Sodium Succinate 40 MG/1 ML SDV IVPUSH SCH ×2 (00:30→08:25)
[2017-09-07] MEDS: Sodium Chloride 0.9% 10 ML Syringe FLUSH PRN ×2 (00:31→08:24)
[2017-09-07] MEDS: Acetaminophen 325 MG Tab PO PRN (00:34)
[2017-09-07] MEDS: guaiFENesin/Dextromethorphan 100-10 MG/5 ML Soln 5 ML Cup PO PRN (00:36)
[2017-09-07] MEDS: Albuterol/Ipratropium 3.0-0.5 MG/3 ML Neb Soln NEB SCH ×3 (00:39→13:27)
[2017-09-07] MEDS: Codeine/Promethazine 10-6.25 MG/5 ML Syrup 5 ML UD Cup PO PRN (06:35)
[2017-09-07] MEDS: Ibuprofen 600 MG Tab PO PRN (06:35)
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
[2017-09-07] MEDS: Formoterol/Mometasone 100-5 MCG 8.8 GM Inhaler IH SCH (08:17)
[2017-09-07] MEDS: Azithromycin 250 MG Tab PO SCH (08:18)
[2017-09-07] MEDS: Benzocaine/Cetylpyridinium/Menthol Lozenge MUCMEM PRN (09:16)
[2017-09-07 12:12] VITALS: BP 127/61
--- NOTE | 2017-09-07 15:27 | PCM.DCSUM1 ---
Discharge Summary - Hospital Course Free Text/Narrative:: Patient admitted for asthma exacerbation. Responding to treatment. However patient decided to leave against medical advise. She said she has to go take care of her son. I expressed the dangers of leaving against medical advise including worsening of asthma and . She expressed understanding but still insisted to leave.She was advised to follow up with her PCP tomorrow. Patient made an appointment to do so. - Discharge Data Discharge Date: 09/07/17 Discharge Disposition: Home, Self-Care 01 Condition: Fair - Patient Summary/Data Consults: Consultations 09/04/17 04:30 Consult to Respiratory Therapy [Respiratory Care Assess and Treatment] [CONS] Routine - Discharge Plan Prescriptions/Med Rec: Azithromycin [Zithromax] 500 mg PO DAILY 2 Days #2 tablet Dextromethorphan/guaiFENesin [Robitussin DM] 10 ml PO Q6H PRN 5 Days #1 cup PRN Reason: Cough Mometasone/Formoterol [Dulera 100-5 MCG] 2 puff IH BIDRT 30 Days #1 inhaler Montelukast [Singulair] 10 mg PO BEDTIME 30 Days #30 tablet Home Medications: Home Meds Albuterol [IJD: Albuterol] 2.5 mg INH Q4H PRN 10/03/16 [History] Albuterol [Proventil HFA] 2 puff INH Q4H PRN 10/03/16 [History] medroxyPROGESTERone Acetate [Depo-Provera] 150 mg IM ASDIRECTED 10/03/16 [ History] Azithromycin [Zithromax] 500 mg PO DAILY 2 Days #2 tablet 09/07/17 [Rx] Dextromethorphan/guaiFENesin [Robitussin DM] 10 ml PO Q6H PRN 5 Days #1 cup 10/18 [Rx] Mometasone/Formoterol [Dulera 100-5 MCG] 2 puff IH BIDRT 30 Days #1 inhaler 10/18 [Rx] Montelukast [Singulair] 10 mg PO BEDTIME 30 Days #30 tablet 09/07/17 [Rx] Patient Handouts: Asthma, Adult, [id number], Asthma Attack Prevention, Adult Referrals: Emile Jiménez MD [Primary Care Provider] - - Discharge Summary/Plan Comment DC Time >30 min.: Yes - Patient Data Vitals - Most Recent: Last Vital Signs Temp 97.8 F 09/07/17 12:11 Pulse 85 09/07/17 13:27 Resp 16 09/07/17 12:11 BP 127/61 09/07/17 12:11 Pulse Ox 93 L 09/07/17 12:11 Weight - Most Recent: 206 lb 3.2 oz I&O - Last 24 hours: Intake & Output 09/07/17 09/07/17 09/07/17 06:59 14:59 22:59 Intake Total 1580 Balance 1580 Lab Results - Last 24 hrs: Laboratory Results - last 24 hr 09/07/17 Range/Units 07:52 WBC 12.9 H (5.0-10.0) 10^3/uL RBC 4.50 (4.2-5.4) 10^6/uL Hgb 13.4 (12.0-16.0) g/dL Hct 40.3 (37.0-47.0) % MCV 89.6 (80-100) fL MCH 29.8 (27.0-34.0) pg MCHC 33.3 (33.0-35.0) g/dL Plt Count 244 (150-450) 10^3/uL Med Orders - Current: Current Medications Acetaminophen (Tylenol) 650 mg PO Q4H PRN PRN Reason: Pain (Mild 1-3)/fever Last Admin: 09/07/17 00:34 Dose: 650 mg Albuterol/Ipratropium (Duoneb 3.0-0.5 Mg/3 Ml) 3 ml NEB Q4H PRN PRN Reason: shortness of breath/wheezing Last Admin: 09/06/17 04:02 Dose: 3 ml Albuterol/Ipratropium (Duoneb 3.0-0.5 Mg/3 Ml) 3 ml NEB Q6HRRT [facility] Last Admin: 09/07/17 13:27 Dose: 3 ml Azithromycin (Zithromax) 500 mg PO DAILY [facility] Last Admin: 09/07/17 08:18 Dose: 500 mg Benzocaine/Menthol (Cepacol Sore Throat) 1 lozenge MUCMEM Q4HR PRN PRN Reason: Sore Throat Last Admin: 09/07/17 09:16 Dose: 1 lozenge Guaifenesin/Phenylephrine HCl (Robitussin Dm) 10 ml PO Q6H PRN PRN Reason: Cough Last Admin: 09/07/17 00:36 Dose: 10 ml Ibuprofen (Motrin) 600 mg PO Q8H PRN PRN Reason: Headache Last Admin: 09/07/17 06:35 Dose: 600 mg Lorazepam (Ativan) 0.5 mg PO BID PRN PRN Reason: Anxiety Last Admin: 09/06/17 21:58 Dose: 0.5 mg Methylprednisolone Sodium Succinate (Solu-Medrol) 40 mg IVPUSH Q8H [facility] Last Admin: 09/07/17 08:25 Dose: 40 mg Mometasone Furoate/Formoterol Fumar (Dulera 100-5 Mcg) 2 puff IH BIDRT [facility] Last Admin: 09/07/17 08:17 Dose: 2 puff Montelukast Sodium (Singulair) 10 mg PO BEDTIME [facility] Last Admin: 09/06/17 20:52 Dose: 10 mg Promethazine HCl/Codeine (Phenergan With Codeine) 5 ml PO Q6HR PRN PRN Reason: Cough Last Admin: 09/07/17 06:35 Dose: 5 ml Sodium Chloride (Saline Flush) 10 ml FLUSH ASDIRECTED PRN PRN Reason: Keep Vein Open Last Admin: 09/07/17 08:24 Dose: 10 ml Discontinued Medications Albuterol (Proventil Neb Soln) 2.5 mg NEB ONETIME ONE Stop: 09/04/17 01:47 Last Admin: 09/04/17 01:49 Dose: 2.5 mg Albuterol/Ipratropium (Duoneb 3.0-0.5 Mg/3 Ml) 3 ml NEB ONETIME ONE Stop: 09/04/17 01:15 Last Admin: 09/04/17 01:20 Dose: 3 ml Azithromycin (Zithromax) 500 mg PO DAILY [facility] Last Admin: 09/04/17 04:31 Dose: 500 mg Guaifenesin/Codeine Phosphate (Robitussin Ac) 5 ml PO ONETIME ONE Stop: 09/04/17 01:21 Last Admin: 09/04/17 01:31 Dose: 5 ml Sodium Chloride (Normal Saline) 1,000 mls @ 999 mls/hr IV .BOLUS ONE Stop: 09/04/17 02:53 Last Infusion: 09/04/17 03:17 Dose: Infused Lorazepam (Ativan) 0.5 mg IVPUSH ONETIME ONE Stop: 09/04/17 01:48 Last Admin: 09/04/17 01:58 Dose: 0.5 mg Methylprednisolone Sodium Succinate (Solu-Medrol) 125 mg IVPUSH ONETIME ONE Stop: 09/04/17 01:19 Last Admin: 09/04/17 01:33 Dose: 125 mg Methylprednisolone Sodium Succinate (Solu-Medrol) 125 mg IVPUSH Q8H [facility] Last Admin: 09/04/17 05:06 Dose: Not Given Methylprednisolone Sodium Succinate (Solu-Medrol) 125 mg IVPUSH Q8H [facility] Last Admin: 09/05/17 01:51 Dose: Not Given Methylprednisolone Sodium Succinate (Solu-Medrol) 80 mg IVPUSH Q8H [facility] Last Admin: 09/06/17 00:53 Dose: 80 mg Methylprednisolone Sodium Succinate (Solu-Medrol) 60 mg IVPUSH Q8H [facility] Last Admin: 09/06/17 09:31 Dose: 60 mg Ondansetron HCl (Zofran) 4 mg IV Q4H PRN PRN Reason: Nausea/Vomiting Last Admin: 09/06/17 04:19 Dose: 4 mg Potassium Chloride (Klor-Con 10) 40 meq PO ONETIME ONE Stop: 09/04/17 04:15 Last Admin: 09/04/17 04:31 Dose: 40 meq
== END 2017-09-07 15:15 | disposition home or self-care (01) | DRG 194 ==
LOC: DL.ED 00:59 → UNDOADMOB 02:28 → DL.MS 02:28 → OBSVTOIN 04:06
PROVIDERS: ADMIT Hospitalist; ATTEND Hospitalist
DX: J18.9 Pneumonia, unspecified organism (principal); J45.41 Moderate persistent asthma with (acute) exacerbation; J22 Unspecified acute lower respiratory infection; F41.9 Anxiety disorder, unspecified; R51 Headache; Z79.51 Long term (current) use of inhaled steroids; Z79.3 Long term (current) use of hormonal contraceptives; Z87.891 Personal history of nicotine dependence; Z88.0 Allergy status to penicillin; Z91.419 Personal history of unspecified adult abuse
CPT/HCPCS: 36415; 71045; 80053; 83605; 85025; 85379; 96361; 96374; 96375; 99285; A9270; J2060; J2930; J7030; J7620; 80048; 83735; 85027; 94640; 94667; J2405; J2920; J7050

== ENCOUNTER 2017-12-11 17:20 | Emergency (ER) | payer MEDICAID ==
[2017-12-11 17:24] VITALS: BP 120/59
[2017-12-11] MEDS: predniSONE 20 MG Tab PO ONE (17:54)
[2017-12-11] MEDS: Albuterol/Ipratropium 3.0-0.5 MG/3 ML Neb Soln NEB ONE (17:55)
--- NOTE | 2017-12-11 18:43 | EDM.PDOC ---
Scribed by Delisa Samuels 12/11/17 [id number] for Zach Kelley MD ED HPI GENERAL MEDICAL PROBLEM - General Chief Complaint: Respiratory Problem Stated Complaint: UNKNOWN Time Seen by Provider: 12/11/17 17:20 Source of Information: Reports: Patient, RN, RN Notes Reviewed History Limitations: Reports: No Limitations - History of Present Illness INITIAL COMMENTS - FREE TEXT/NARRATIVE: Patient presents to ER by [facility] with complaint of several days of cough and wheezing with shortness of breath and recurrent migraine headache. Admits to mild sore throat. Last week she got a refill of her Ventolin inhaler but it was filled with ProAir brand which does not seem to be helping for her wheezing. Today the patient coughed so hard that she gagged, vomited and passed out. She thinks she may have bumped her head. She denies any leakage of any clear or bloody fluid. Onset: Gradual Location: Reports: Chest Quality: Reports: Ache Severity: Moderate Improves with: Reports: None Worsens with: Reports: None Associated Symptoms: Reports: No Other Symptoms Headache Pain Score (Numeric/FACES): 9 - Related Data Allergies Allergy/AdvReac Type Severity Reaction Status Date / Time amoxicillin trihydrate Allergy Intermediate Hives Verified 12/11/17 17:29 [From Augmentin] potassium clavulanate Allergy Intermediate Hives Verified 12/11/17 17:29 [From Augmentin] Penicillins Allergy Unknown Rash Verified 12/11/17 17:29 Home Meds: Home Meds Albuterol [IJD: Albuterol] 2.5 mg INH Q4H PRN 10/03/16 [History] Albuterol [Proventil HFA] 2 puff INH Q4H PRN 10/03/16 [History] medroxyPROGESTERone Acetate [Depo-Provera] 150 mg IM ASDIRECTED 10/03/16 [ History] Azithromycin [Zithromax] 500 mg PO DAILY 2 Days #2 tablet 09/07/17 [Rx] Dextromethorphan/guaiFENesin [Robitussin DM] 10 ml PO Q6H PRN 5 Days #1 cup 10/18 [Rx] Mometasone/Formoterol [Dulera 100-5 MCG] 2 puff IH BIDRT 30 Days #1 inhaler 10/18 [Rx] Montelukast [Singulair] 10 mg PO BEDTIME 30 Days #30 tablet 09/07/17 [Rx] Past Medical History - Past Health History Medical/Surgical History: Denies Medical/Surgical History HEENT History: Reports: None Other HEENT History: wishdom teeth Cardiovascular History: Reports: None Respiratory History: Reports: Asthma Gastrointestinal History: Reports: Cholelithiasis Genitourinary History: Reports: None 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 Musculoskeletal History: Reports: None Neurological History: Reports: None Psychiatric History: Reports: ADHD, Anxiety, Depression, Panic Attack, PTSD Endocrine/Metabolic History: Reports: None Hematologic History: Reports: None Immunologic History: Reports: None Oncologic (Cancer) History: Reports: None Dermatologic History: Reports: None - Infectious Disease History Infectious Disease History: Reports: None - Past Surgical History Head Surgeries/Procedures: Reports: None Female Surgical History: Reports: Section Social & Family History - Family History Family Medical History: Noncontributory Cardiac: Reports: Hypertension Neurological: Reports: Alzheimers Disease Endocrine/Metabolic: Reports: Diabetes, type II Other Endocrine/Metabolic Family History: Mom and dad Oncologic: Reports: Breast - Tobacco Use Smoking Status *Q: Never Smoker Second Hand Smoke Exposure: No - Caffeine Use Caffeine Use: Reports: Soda - Recreational Drug Use Recreational Drug Use: No - Living Situation & Occupation Living situation: Reports: with Significant Other Occupation: Employed ED ROS GENERAL - Review of Systems Review Of Systems: ROS reveals no pertinent complaints other than HPI. ED EXAM, GENERAL - Physical Exam Exam: See Below Exam Limited By: No Limitations General Appearance: Alert, WD/WN, No Apparent Distress Eye Exam: Bilateral Eye: Normal Inspection Ears: Normal External Exam, Normal Canal, Hearing Grossly Normal, Normal TMs Nose: Normal Inspection, Normal Mucosa, No Blood Throat/Mouth: Normal Lips, Normal Teeth, Normal Voice, No Airway Compromise, Other (mild pharyngeal erythema) Head: Atraumatic, Normocephalic Neck: Normal Inspection, Supple, Non-Tender, Full Range of Motion Respiratory/Chest: No Respiratory Distress, No Accessory Muscle Use, Chest Non- Tender, Wheezing. No: Crackles, Rales, Rhonchi Cardiovascular: Regular Rate, Rhythm, Tachycardia GI/Abdominal: Normal Bowel Sounds, Soft, Non-Tender, No Distention Back Exam: Normal Inspection Extremities: Normal Inspection, Normal Range of Motion, Non-Tender, Normal Capillary Refill, No Pedal Edema Neurological: Alert, Oriented, CN II-XII Intact, Normal Cognition, Normal Gait, No Motor/Sensory Deficits Psychiatric: Normal Affect, Normal Mood Skin Exam: Warm, Dry, Intact, Normal Color, No Rash Course - Vital Signs Last Recorded V/S: Last Vital Signs Temp 36.6 C 12/11/17 17:23 Pulse 100 12/11/17 17:23 Resp 15 12/11/17 17:23 BP 120/59 L 12/11/17 17:23 Pulse Ox 94 L 12/11/17 17:23 - Orders/Labs/Meds Orders: Active Orders 24 hr Category Date Time Status RT Aerosol Therapy [RC] ASDIRECTED Care 12/11/17 17:42 Active Chest 2V [CR] Stat Exams 12/11/17 17:42 Taken CULTURE STREP A CONFIRMATION [] Stat Lab 12/11/17 17:55 Results STREP SCRN A RAPID W CULT CONF [] Stat Lab 12/11/17 17:55 Results Labs: Rapid strep: Meds: Medications Discontinued Medications Generic Name Dose Route Start Last Admin Trade Name Freq PRN Reason Stop Dose Admin Albuterol/Ipratropium 3 ml 12/11/17 17:42 12/11/17 17:55 Duoneb 3.0-0.5 Mg/3 Ml NEB 12/11/17 17:43 3 ml ONETIME ONE Administration Prednisone 60 mg 12/11/17 17:43 12/11/17 17:54 Prednisone PO 12/11/17 17:44 60 mg ONETIME ONE Administration - Radiology Interpretation Free Text/Narrative:: Chest x-ray: Departure - Departure Time of Disposition: 18:38 Disposition: Home, Self-Care 01 Condition: Good Clinical Impression: Acute asthma, Vasovagal syncope - Discharge Information *PRESCRIPTION DRUG MONITORING PROGRAM REVIEWED*: Not Applicable *COPY OF PRESCRIPTION DRUG MONITORING REPORT IN PATIENT FABRIZIO: Not Applicable Instructions: Bronchospasm, Adult, Asthma, Adult, Vasovagal Syncope, Adult Forms: ED Department Discharge Additional Instructions: Rx: Albuterol 2.5mg nebulizer solution Rx: Prednisone 20mg Drink plenty of water. Follow up in clinic if not improving in 2 to 3 days. - My Orders Last 24 Hours: My Active Orders 12/11/17 17:42 RT Aerosol Therapy [RC] ASDIRECTED Chest 2V [CR] Stat 12/11/17 17:55 CULTURE STREP A CONFIRMATION [RM] Stat STREP SCRN A RAPID W CULT CONF [RM] Stat - Assessment/Plan Last 24 Hours: My Active Orders 12/11/17 17:42 RT Aerosol Therapy [RC] ASDIRECTED Chest 2V [CR] Stat 12/11/17 17:55 CULTURE STREP A CONFIRMATION [RM] Stat STREP SCRN A RAPID W CULT CONF [RM] Stat I have read and agree with the documentation that has been completed regarding this visit. By signing this record, I attest that the documentation was completed in my physical presence and is an accurate record of the encounter.
== END 2017-12-11 18:59 | disposition home or self-care (01) ==
LOC: DL.ED 17:20
DX: J45.901 Unspecified asthma with (acute) exacerbation (principal); R55 Syncope and collapse; Z88.1 Allergy status to other antibiotic agents; Z79.899 Other long term (current) drug therapy; Z88.0 Allergy status to penicillin
CPT/HCPCS: 71046; 87081; 87430; 94640; 99284; A9270-GY; J7620-GY

== ENCOUNTER 2018-04-30 23:22 | Emergency (ER) | payer MEDICAID ==
[2018-04-30 23:28] VITALS: BP 137/71
[2018-04-30] MEDS ORDERED: Cefdinir 250 MG/5 ML Susp 100 ML Bottle PO ONE (23:56)
--- NOTE | 2018-05-01 00:02 | EDM.PDOC ---
ED HPI GENERAL MEDICAL PROBLEM - General Chief Complaint: ENT Problem Stated Complaint: EAR INFECTION [id number] Time Seen by Provider: 04/30/18 23:50 Source of Information: Reports: Patient, RN, RN Notes Reviewed History Limitations: Reports: No Limitations - History of Present Illness INITIAL COMMENTS - FREE TEXT/NARRATIVE: Pt to ER with c/o right ear pain that began this afternoon and has progressively gotten worse. Patient states the ear pain is 8-9/10, radiating into the right lower jaw. She states she is "numb" on the right side of the neck. Denies fever or chills. Admits to vomiting and diarrhea that began today as well. Denies any dental issues. Onset: Today, Sudden Duration: Constant Location: Reports: Head, Face, Neck Quality: Reports: Stabbing Severity: Severe Improves with: Reports: None Worsens with: Reports: None Associated Symptoms: Reports: Nausea/Vomiting Treatments CHAMBER MAGISTRATE: Reports: Acetaminophen, NSAIDS Right Ear Pain Score (Numeric/FACES): 10 - Related Data Allergies Allergy/AdvReac Type Severity Reaction Status Date / Time amoxicillin trihydrate Allergy Intermediate Hives Verified 04/30/18 23:26 [From Augmentin] potassium clavulanate Allergy Intermediate Hives Verified 04/30/18 23:26 [From Augmentin] Penicillins Allergy Unknown Rash Verified 04/30/18 23:26 Home Meds: Home Meds Albuterol [IJD: Albuterol] 2.5 mg INH Q4H PRN 10/03/16 [History] Albuterol [Proventil HFA] 2 puff INH Q4H PRN 10/03/16 [History] medroxyPROGESTERone Acetate [Depo-Provera] 150 mg IM ASDIRECTED 10/03/16 [ History] Mometasone/Formoterol [Dulera 100-5 MCG] 2 puff IH BIDRT 30 Days #1 inhaler 10/18 [Rx] Past Medical History - Past Health History Medical/Surgical History: Denies Medical/Surgical History HEENT History: Reports: None Other HEENT History: wishdom teeth Cardiovascular History: Reports: None Respiratory History: Reports: Asthma Gastrointestinal History: Reports: Cholelithiasis Genitourinary History: Reports: None 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 Musculoskeletal History: Reports: None Neurological History: Reports: None Psychiatric History: Reports: ADHD, Anxiety, Depression, Panic Attack, PTSD Endocrine/Metabolic History: Reports: Obesity/BMI 30+ Hematologic History: Reports: None Immunologic History: Reports: None Oncologic (Cancer) History: Reports: None Dermatologic History: Reports: None - Infectious Disease History Infectious Disease History: Reports: None - Past Surgical History Head Surgeries/Procedures: Reports: None Female Surgical History: Reports: Section Social & Family History - Family History Family Medical History: Noncontributory Cardiac: Reports: Hypertension Neurological: Reports: Alzheimers Disease Endocrine/Metabolic: Reports: Diabetes, type II Other Endocrine/Metabolic Family History: Mom and dad Oncologic: Reports: Breast - Tobacco Use Smoking Status *Q: Never Smoker - Caffeine Use Caffeine Use: Reports: None - Recreational Drug Use Recreational Drug Use: No - Living Situation & Occupation Living situation: Reports: with Significant Other Occupation: Employed ED ROS ENT - Review of Systems Review Of Systems: ROS reveals no pertinent complaints other than HPI. ED EXAM, ENT - Physical Exam Exam: See Below Exam Limited By: No Limitations General Appearance: Alert, WD/WN, Moderate Distress Eye Exam: Bilateral Eye: EOMI, Normal Inspection Ears: Hearing Grossly Normal, Mastoid Tenderness, TM Bulging, TM Dullness, TM Erythema Nose: Normal Inspection, Normal Mucousa, No Blood Mouth/Throat: Normal Inspection, Normal Gums, Normal Lips, Normal Oropharynx, Normal Teeth Head: Atraumatic, Normocephalic Neck: Normal Inspection, Supple, Non-Tender, Full Range of Motion Respiratory/Chest: No Respiratory Distress, Lungs Clear, Normal Breath Sounds, No Accessory Muscle Use, Chest Non-Tender Cardiovascular: Normal Peripheral Pulses, Regular Rate, Rhythm, No Edema, No Gallop, No JVD, No Murmur, No Rub GI/Abdominal: Normal Bowel Sounds, Soft, Non-Tender (Female) Exam: Deferred Rectal (Female) Exam: Deferred Back: Normal Inspection, Full Range of Motion Extremities: Normal Inspection, Normal Range of Motion, Non-Tender, No Pedal Edema, Normal Capillary Refill Neurological: Alert, Oriented, CN II-XII Intact, Normal Cognition, Normal Gait, Normal Reflexes, No Motor/Sensory Deficits Psychiatric: Anxious, Tearful Skin: Warm, Dry, Intact, Normal Color, No Rash Lymphatic: No Adenopathy Course - Vital Signs Last Recorded V/S: Last Vital Signs Temp 96.8 F 04/30/18 23:26 Pulse 88 04/30/18 23:26 Resp 21 H 04/30/18 23:26 BP 137/71 04/30/18 23:26 Pulse Ox 98 04/30/18 23:26 - Orders/Labs/Meds Meds: Medications Discontinued Medications Generic Name Dose Route Start Last Admin Trade Name Freq PRN Reason Stop Dose Admin Cefdinir 300 mg 04/30/18 23:56 05/01/18 00:11 Omnicef 250 Mg/5 Ml Susp PO 04/30/18 23:57 6 ml ONETIME ONE Administration Departure - Departure Time of Disposition: 00:00 Disposition: Home, Self-Care 01 Condition: Fair Clinical Impression: Otitis media Qualifiers: Otitis media type: suppurative Chronicity: acute Laterality: right Recurrence: not specified as recurrent Spontaneous tympanic membrane rupture: without spontaneous rupture Qualified Code(s): H66.001 - Acute suppurative otitis media without spontaneous rupture of ear drum, right ear - Discharge Information *PRESCRIPTION DRUG MONITORING PROGRAM REVIEWED*: No *COPY OF PRESCRIPTION DRUG MONITORING REPORT IN PATIENT FABRIZIO: No Instructions: Otitis Media, Adult, [id number] Referrals: Emile Jiménez MD [Physician] - Forms: ED Department Discharge Additional Instructions: RX: Cefdinir Take Tylenol every 4 hours as directed for pain/fever Ibuprofen every 6 hours as directed for pain/fever Use heat to the ear/neck for comfort Follow up with your primary care facility
== END 2018-05-01 00:13 | disposition home or self-care (01) ==
LOC: DL.ED 23:22
DX: H66.001 Acute suppurative otitis media without spontaneous rupture of ear drum, right ear (principal); J45.909 Unspecified asthma, uncomplicated; Z79.899 Other long term (current) drug therapy; Z88.0 Allergy status to penicillin; Z88.1 Allergy status to other antibiotic agents
CPT/HCPCS: 99282; A9270

== ENCOUNTER 2018-05-02 21:35 | Emergency (ER) | payer MEDICAID ==
[2018-05-02 22:03] VITALS: BP 113/79
[2018-05-02] MEDS: Albuterol/Ipratropium 3.0-0.5 MG/3 ML Neb Soln NEB ONE (22:15)
--- NOTE | 2018-05-02 23:30 | EDM.PDOC ---
ED HPI GENERAL MEDICAL PROBLEM - General Chief Complaint: General Stated Complaint: SOB, INCISION BLACK Time Seen by Provider: 05/02/18 21:45 Source of Information: Reports: Patient History Limitations: Reports: No Limitations - History of Present Illness INITIAL COMMENTS - FREE TEXT/NARRATIVE: c/o incision burning and SOB with cough, hx asthma, ran out of inhaler one week ago and not due for refill until 05/12. Has nebulizer at home and reports has been using. Recent ED visti for right ear infection and is not resolved. Continued pain but has not taken anything. No fever. Cough dry non productive. - Related Data Allergies Allergy/AdvReac Type Severity Reaction Status Date / Time amoxicillin trihydrate Allergy Intermediate Hives Verified 05/03/18 13:21 [From Augmentin] potassium clavulanate Allergy Intermediate Hives Verified 05/03/18 13:21 [From Augmentin] Penicillins Allergy Unknown Rash Verified 05/03/18 13:21 Home Meds: Home Meds Albuterol [IJD: Albuterol] 2.5 mg INH Q4H PRN 10/03/16 [History] Albuterol [Proventil HFA] 2 puff INH Q4H PRN 10/03/16 [History] medroxyPROGESTERone Acetate [Depo-Provera] 150 mg IM ASDIRECTED 10/03/16 [ History] Mometasone/Formoterol [Dulera 100-5 MCG] 2 puff IH BIDRT 30 Days #1 inhaler 10/18 [Rx] Past Medical History - Past Health History Medical/Surgical History: Denies Medical/Surgical History HEENT History: Reports: None Other HEENT History: wishdom teeth Cardiovascular History: Reports: None Respiratory History: Reports: Asthma Gastrointestinal History: Reports: Cholelithiasis Genitourinary History: Reports: None 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 Musculoskeletal History: Reports: None Neurological History: Reports: None Psychiatric History: Reports: ADHD, Anxiety, Depression, Panic Attack, PTSD Endocrine/Metabolic History: Reports: Obesity/BMI 30+ Hematologic History: Reports: None Immunologic History: Reports: None Oncologic (Cancer) History: Reports: None Dermatologic History: Reports: None - Infectious Disease History Infectious Disease History: Reports: None - Past Surgical History Head Surgeries/Procedures: Reports: None Female Surgical History: Reports: Section Social & Family History - Family History Family Medical History: Noncontributory Cardiac: Reports: Hypertension Neurological: Reports: Alzheimers Disease Endocrine/Metabolic: Reports: Diabetes, type II Other Endocrine/Metabolic Family History: Mom and dad Oncologic: Reports: Breast - Tobacco Use Smoking Status *Q: Never Smoker - Caffeine Use Caffeine Use: Reports: None - Recreational Drug Use Recreational Drug Use: No - Living Situation & Occupation Living situation: Reports: with Significant Other Occupation: Employed ED ROS GENERAL - Review of Systems Review Of Systems: See Below Constitutional: Denies: Fever, Chills HEENT: Reports: Ear Pain (right), Throat Pain Respiratory: Reports: Shortness of Breath, Wheezing, Cough. Denies: Sputum Cardiovascular: Reports: No Symptoms GI/Abdominal: Reports: Abdominal Pain (supropubic), Nausea : Denies: Frequency Musculoskeletal: Reports: No Symptoms Skin: Reports: No Symptoms Neurological: Reports: No Symptoms Psychiatric: Reports: Anxiety ED EXAM, GENERAL - Physical Exam Exam: See Below Exam Limited By: No Limitations General Appearance: Alert, Anxious, Mild Distress Eye Exam: Bilateral Eye: EOMI Ears: Normal External Exam. No: Normal TMs Ear Exam: Right Ear: TM Red Nose: Normal Inspection Throat/Mouth: Inflammation (mild posterior pharnyx) Head: Atraumatic, Normocephalic Respiratory/Chest: Lungs Clear, Wheezing (upper bilateral, forced dry cough) Cardiovascular: Normal Peripheral Pulses, Regular Rate, Rhythm GI/Abdominal: Soft, Tender (mild suprapubic deep palpation, and mid abdomen), Abnormal Bowel Sounds (hyperactice). No: Distended, Guarding Back Exam: Normal Inspection Neurological: Alert, Oriented Psychiatric: Normal Affect Skin Exam: Warm, Dry, Intact, Normal Color Course - Vital Signs Last Recorded V/S: Last Vital Signs Temp 98.1 F 05/02/18 21:40 Pulse 90 05/02/18 21:40 Resp 20 05/02/18 21:40 BP 113/79 05/02/18 21:40 Pulse Ox 98 05/02/18 21:40 - Orders/Labs/Meds Labs: Laboratory Tests 05/02/18 05/02/18 Range/Units 22:15 22:15 Urine Color Yellow (YELLOW) Urine Appearance Slightly cloudy (CLEAR) Urine pH 5.5 (5.0-9.0) Ur Specific Tyler >= 1.030 (1.005-1.030) Urine Protein Negative (NEGATIVE) Urine Glucose (UA) Negative (NEGATIVE) Urine Ketones Negative (NEGATIVE) Urine Occult Blood Trace-intact H (NEGATIVE) Urine Nitrite Negative (NEGATIVE) Urine Bilirubin Negative (NEGATIVE) Urine Urobilinogen 0.2 (0.2-1.0) mg/dL Ur Leukocyte Esterase Negative (NEGATIVE) Urine RBC 5-10 H /HPF Urine WBC 0-5 (0-5/HPF) /HPF Ur Epithelial Cells Many H /HPF Urine Bacteria Few (0-FEW/HPF) /HPF Urine Mucus Few H /LPF Urine Opiates Screen Negative (NEGATIVE) Ur Oxycodone Screen Negative (NEGATIVE) Urine Methadone Screen Negative (NEGATIVE) Ur Barbiturates Screen Negative (NEGATIVE) U Tricyclic Antidepress Negative (NEGATIVE) Ur Phencyclidine Scrn Negative (NEGATIVE) Ur Amphetamine Screen Negative (NEGATIVE) U Methamphetamines Scrn Negative (NEGATIVE) Urine MDMA Screen Positive H (NEGATIVE) U Benzodiazepines Scrn Negative (NEGATIVE) Urine Cocaine Screen Negative (NEGATIVE) U Marijuana (THC) Screen Negative (NEGATIVE) Meds: Medications Discontinued Medications Generic Name Dose Route Start Last Admin Trade Name Freq PRN Reason Stop Dose Admin Albuterol/Ipratropium 3 ml 05/02/18 21:44 05/02/18 22:15 Duoneb 3.0-0.5 Mg/3 Ml NEB 05/02/18 21:45 3 ml ONETIME ONE Administration Departure - Departure Time of Disposition: 23:27 Disposition: Home, Self-Care 01 Condition: Good Clinical Impression: Abdominal cramping Otitis media Qualifiers: Otitis media type: suppurative Chronicity: acute Laterality: right Recurrence: not specified as recurrent Spontaneous tympanic membrane rupture: without spontaneous rupture Qualified Code(s): H66.001 - Acute suppurative otitis media without spontaneous rupture of ear drum, right ear Exacerbation of asthma Qualifiers: Asthma severity: unspecified severity Asthma persistence: persistent Qualified Code(s): J45.901 - Unspecified asthma with (acute) exacerbation - Discharge Information *PRESCRIPTION DRUG MONITORING PROGRAM REVIEWED*: Not Applicable Instructions: Otitis Media, Adult, [id number] Forms: ED Department Discharge Additional Instructions: Stop cefdinir azithromycin 500mg tomorrow and then 250mg daily x 4 days tylenol 650mg every 4 hours as needed for discomfort increase fluid intake albuterol inhaler 2 puffs every 4 hours as needed clinic follow up on monday
== END 2018-05-02 23:50 | disposition home or self-care (01) ==
LOC: DL.ED 21:35
DX: J45.901 Unspecified asthma with (acute) exacerbation (principal); H66.001 Acute suppurative otitis media without spontaneous rupture of ear drum, right ear; R10.30 Lower abdominal pain, unspecified; Z88.0 Allergy status to penicillin; Z88.1 Allergy status to other antibiotic agents
CPT/HCPCS: 80305-QW; 81001; 94640; 99283; J7620-GY

== ENCOUNTER 2019-09-29 10:35 | Emergency (ER) | payer MEDICAID ==
[2019-09-29 10:35] VITALS: BP 101/58
[2019-09-29] MEDS ORDERED: Albuterol 0.083% 2.5 MG/3 ML Neb Soln NEB ONE (10:36)
[2019-09-29 10:54] VITALS: PULSE 82
--- NOTE | 2019-09-29 10:57 | EDM.PDOC ---
ED HPI GENERAL MEDICAL PROBLEM - General Chief Complaint: Asthma Stated Complaint: AMBULANCE Time Seen by Provider: 09/29/19 10:35 Source of Information: Reports: Patient History Limitations: Reports: No Limitations - History of Present Illness INITIAL COMMENTS - FREE TEXT/NARRATIVE: ed with asthma attack, EMS reported as call that she was unresponsive, Awake slow responses on arrival. Emesis x 1 enroute. Patient states started last night, inhaler and neb this morning. No fever, chills, productive cough. Denies drug use. No known exposure to COVID. Calmer than usual presentation. No bronchospasm as per usual previous presentations. Chest Pain Score (Numeric/FACES): 6 - Related Data Allergies Allergy/AdvReac Type Severity Reaction Status Date / Time amoxicillin trihydrate Allergy Intermediate Hives Verified 09/29/19 10:38 [From Augmentin] potassium clavulanate Allergy Intermediate Hives Verified 09/29/19 10:38 [From Augmentin] Penicillins Allergy Unknown Rash Verified 09/29/19 10:38 Home Meds: Home Meds Albuterol [IJD: Albuterol] 2.5 mg INH Q4H PRN 10/03/16 [History] Albuterol [Proventil HFA] 2 puff INH Q4H PRN 10/03/16 [History] medroxyPROGESTERone Acetate [Depo-Provera] 150 mg IM ASDIRECTED 10/03/16 [History] Budesonide/Formoterol Fumarate [Symbicort 160-4.5 Mcg Inhaler] 2 puff IH BID 09/29/19 [History] Past Medical History - Past Health History Medical/Surgical History: Denies Medical/Surgical History HEENT History: Reports: None Other HEENT History: wishdom teeth Cardiovascular History: Reports: None Respiratory History: Reports: Asthma Gastrointestinal History: Reports: Cholelithiasis Genitourinary History: Reports: None [employer]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 Musculoskeletal History: Reports: None Neurological History: Reports: None Psychiatric History: Reports: ADHD, Anxiety, Depression, Panic Attack, PTSD Endocrine/Metabolic History: Reports: Obesity/BMI 30+ Hematologic History: Reports: None Immunologic History: Reports: None Oncologic (Cancer) History: Reports: None Dermatologic History: Reports: None - Infectious Disease History Infectious Disease History: Reports: None - Past Surgical History Head Surgeries/Procedures: Reports: None Female Surgical History: Reports: Section Social & Family History - Family History Family Medical History: Noncontributory Cardiac: Reports: Hypertension Neurological: Reports: Alzheimers Disease Endocrine/Metabolic: Reports: Diabetes, type II Other Endocrine/Metabolic Family History: Mom and dad Oncologic: Reports: Breast - Tobacco Use Smoking Status *Q: Former Smoker Used Tobacco, but Quit: Yes Month/Year Tobacco Last Used: 2017 - Caffeine Use Caffeine Use: Reports: None - Recreational Drug Use Recreational Drug Use: No - Living Situation & Occupation Living situation: Reports: with Significant Other Occupation: Employed ED ROS GENERAL - Review of Systems Review Of Systems: Comprehensive ROS is negative, except as noted in HPI. Constitutional: Reports: Malaise. Denies: Fever, Chills HEENT: Reports: Ear Pain (top of right ear itches). Denies: Nose Pain, Rhinitis, Throat Pain, Throat Swelling Respiratory: Reports: Shortness of Breath, Cough, Other (neb at 0600, inhaler last ever) Cardiovascular: Reports: No Symptoms GI/Abdominal: Denies: No Symptoms : Denies: No Symptoms Musculoskeletal: Reports: No Symptoms, Muscle Pain, Other (general aches) Skin: Denies: No Symptoms ED EXAM, GENERAL - Physical Exam Exam: See Below Exam Limited By: No Limitations General Appearance: Alert, Mild Distress Ears: Normal External Exam, Hearing Grossly Normal Nose: Normal Inspection Throat/Mouth: Normal Inspection Head: Atraumatic, Normocephalic Neck: Normal Inspection, Full Range of Motion Respiratory/Chest: No Respiratory Distress, Decreased Breath Sounds. No: Rhonchi, Wheezing Cardiovascular: Normal Peripheral Pulses, Regular Rate, Rhythm GI/Abdominal: Normal Bowel Sounds, Soft Back Exam: Normal Inspection, Full Range of Motion Extremities: Normal Inspection Neurological: Alert, Oriented, Normal Cognition Psychiatric: Flat Affect Skin Exam: Warm, Dry, Intact, No Rash Course - Vital Signs Text/Narrative:: TC Dr Winter , recommend tx to [facility]. Dr kerr accepting, Tx via [facility]. Stable condition. Last Recorded V/S: Last Vital Signs Temp 98.0 F 09/29/19 10:33 Pulse 82 09/29/19 10:50 Resp 16 09/29/19 10:33 BP 101/58 L 09/29/19 10:33 Pulse Ox 96 09/29/19 10:33 - Orders/Labs/Meds Orders: Active Orders 24 hr Category Date Time Status EKG 12 Lead [EKG Documentation Completion] [RC] URGENT Care 09/29/19 10:38 Active RT Aerosol Therapy [RC] ASDIRECTED Care 09/29/19 10:36 Active Labs: Laboratory Tests 09/29/19 09/29/19 09/29/19 Range/Units 10:36 10:36 11:04 WBC 12.6 H (5.0-10.0) 10^3/uL RBC 5.23 (4.2-5.4) 10^6/uL Hgb 16.0 (12.0-16.0) g/dL Hct 47.6 H (37.0-47.0) % MCV 91.0 (80-100) fL MCH 30.6 (27.0-34.0) pg MCHC 33.6 (33.0-35.0) g/dL Plt Count 279 (150-450) 10^3/uL Neut % (Auto) 42.9 (42.2-75.2) % Lymph % (Auto) 42.9 (20.5-50.1) % [place] % (Auto) 9.3 H (2-8) % Eos % (Auto) 4.7 H (1.0-3.0) % Baso % (Auto) 0.2 (0.0-1.0) % Sodium 139 (136-145) mmol/L Potassium 3.7 (3.5-5.1) mmol/L Chloride 104 (98-107) mmol/L Carbon Dioxide 23 (21-32) mmol/L Anion Gap 15.7 H (7-13) mEq/L BUN 11 (7-18) mg/dL Creatinine 0.75 (0.55-1.02) mg/dL Est Cr Clr Drug Dosing 97.33 mL/min Estimated GFR (MDRD) > 60 BUN/Creatinine Ratio 14.7 (No establ ref range) Glucose 114 H (74-99) mg/dL Calcium 8.8 (8.5-10.1) mg/dL Magnesium 2.0 (1.8-2.4) mg/dL Total Bilirubin 0.5 (0.2-1.0) mg/dL AST 18 (15-37) U/L ALT 24 (14-59) U/L Alkaline Phosphatase 84 (46-116) U/L Total Protein 7.2 (6.4-8.2) g/dL Albumin 3.8 (3.4-5.0) g/dL Globulin 3.4 Albumin/Globulin Ratio 1.1 Urine Color Yellow (YELLOW) Urine Appearance Slightly cloudy (CLEAR) Urine pH 7.0 (5.0-9.0) Ur Specific [place] >= 1.030 (1.005-1.030) Urine Protein Negative (NEGATIVE) Urine Glucose (UA) Negative (NEGATIVE) Urine Ketones Negative (NEGATIVE) Urine Occult Blood Small H (NEGATIVE) Urine Nitrite Negative (NEGATIVE) Urine Bilirubin Negative (NEGATIVE) Urine Urobilinogen 0.2 (0.2-1.0) mg/dL Ur Leukocyte Esterase Negative (NEGATIVE) Urine RBC 0-5 /HPF Urine WBC 0-5 (0-5/HPF) /HPF Ur Epithelial Cells Moderate H (NOT SEEN) /HPF Amorphous Sediment Moderate H (NOT SEEN) /HPF Urine Bacteria Few (0-FEW/HPF) /HPF Urine Mucus Few H (NOT SEEN) /LPF Urine HCG, Qual Urine Opiates Screen (NEGATIVE) Ur Oxycodone Screen (NEGATIVE) Urine Methadone Screen (NEGATIVE) Ur Barbiturates Screen (NEGATIVE) U Tricyclic Antidepress (NEGATIVE) Ur Phencyclidine Scrn (NEGATIVE) Ur Amphetamine Screen (NEGATIVE) U Methamphetamines Scrn (NEGATIVE) Urine MDMA Screen (NEGATIVE) U Benzodiazepines Scrn (NEGATIVE) Urine Cocaine Screen (NEGATIVE) U Marijuana (THC) Screen (NEGATIVE) SARS-CoV-2 RNA (RT-PCR) (NEGATIVE) 09/29/19 09/29/19 09/29/19 Range/Units 11:04 11:04 12:34 WBC (5.0-10.0) 10^3/uL RBC (4.2-5.4) 10^6/uL Hgb (12.0-16.0) g/dL Hct (37.0-47.0) % MCV (80-100) fL MCH (27.0-34.0) pg MCHC (33.0-35.0) g/dL Plt Count (150-450) 10^3/uL Neut % (Auto) (42.2-75.2) % Lymph % (Auto) (20.5-50.1) % [place] % (Auto) (2-8) % Eos % (Auto) (1.0-3.0) % Baso % (Auto) (0.0-1.0) % Sodium (136-145) mmol/L Potassium (3.5-5.1) mmol/L Chloride (98-107) mmol/L Carbon Dioxide (21-32) mmol/L Anion Gap (7-13) mEq/L BUN (7-18) mg/dL Creatinine (0.55-1.02) mg/dL Est Cr Clr Drug Dosing mL/min Estimated GFR (MDRD) BUN/Creatinine Ratio (No establ ref range) Glucose (74-99) mg/dL Calcium (8.5-10.1) mg/dL Magnesium (1.8-2.4) mg/dL Total Bilirubin (0.2-1.0) mg/dL AST (15-37) U/L ALT (14-59) U/L Alkaline Phosphatase (46-116) U/L Total Protein (6.4-8.2) g/dL Albumin (3.4-5.0) g/dL Globulin Albumin/Globulin Ratio Urine Color (YELLOW) Urine Appearance (CLEAR) Urine pH (5.0-9.0) Ur Specific [place] (1.005-1.030) Urine Protein (NEGATIVE) Urine Glucose (UA) (NEGATIVE) Urine Ketones (NEGATIVE) Urine Occult Blood (NEGATIVE) Urine Nitrite (NEGATIVE) Urine Bilirubin (NEGATIVE) Urine Urobilinogen (0.2-1.0) mg/dL Ur Leukocyte Esterase (NEGATIVE) Urine RBC /HPF Urine WBC (0-5/HPF) /HPF Ur Epithelial Cells (NOT SEEN) /HPF Amorphous Sediment (NOT SEEN) /HPF Urine Bacteria (0-FEW/HPF) /HPF Urine Mucus (NOT SEEN) /LPF Urine HCG, Qual Negative Urine Opiates Screen Negative (NEGATIVE) Ur Oxycodone Screen Negative (NEGATIVE) Urine Methadone Screen Negative (NEGATIVE) Ur Barbiturates Screen Negative (NEGATIVE) U Tricyclic Antidepress Negative (NEGATIVE) Ur Phencyclidine Scrn Negative (NEGATIVE) Ur Amphetamine Screen Negative (NEGATIVE) U Methamphetamines Scrn Negative (NEGATIVE) Urine MDMA Screen Negative (NEGATIVE) U Benzodiazepines Scrn Negative (NEGATIVE) Urine Cocaine Screen Negative (NEGATIVE) U Marijuana (THC) Screen Negative (NEGATIVE) SARS-CoV-2 RNA (RT-PCR) Negative (NEGATIVE) Meds: Medications Discontinued Medications Generic Name Dose Route Start Last Admin Trade Name Demetrio PRN Reason Stop Dose Admin Albuterol 2.5 mg 09/29/19 10:36 09/29/19 10:57 Proventil Neb Soln NEB 09/29/19 10:37 2.5 mg ONETIME ONE Administration - Re-Assessments/Exams Free Text/Narrative Re-Assessment/Exam: Resting, rare dry cough, No wheezing throughout ED visit encounter. Saturation maintained. C/o itching to tip of right ear. , mild redness to tip, no swelling. TC Dr winter, recommend tx to [facility]. Dr Sandra Colindres accepting patient. Tx via [facility]. Departure - Departure Time of Disposition: 13:15 Disposition: DC/Tfer to Acute Hospital 02 Condition: Fair Clinical Impression: Asthma exacerbation Qualifiers: Asthma severity: unspecified severity Asthma persistence: persistent Qualified Code(s): J45.901 - Unspecified asthma with (acute) exacerbation - Discharge Information *PRESCRIPTION DRUG MONITORING PROGRAM REVIEWED*: No *COPY OF PRESCRIPTION DRUG MONITORING REPORT IN PATIENT FABRIZIO: No Forms: ED Department Discharge Sepsis Event Note (ED) - Evaluation Sepsis Screening Result: No Definite Risk - Focused Exam Vital Signs: Vital Signs Temp Pulse Resp BP Pulse Ox 09/29/19 10:50 82 09/29/19 10:33 98.0 F 102 H 16 101/58 L 96 - My Orders Last 24 Hours: My Active Orders 09/29/19 10:36 RT Aerosol Therapy [RC] ASDIRECTED 09/29/19 10:38 EKG 12 Lead [EKG Documentation Completion] [RC] URGENT - Assessment/Plan Last 24 Hours: My Active Orders 09/29/19 10:36 RT Aerosol Therapy [RC] ASDIRECTED 09/29/19 10:38 EKG 12 Lead [EKG Documentation Completion] [RC] URGENT
[2019-09-29 11:07] LABS: ANION GAP 15.7 mEq/L (7-13); CHLORIDE,CL 104 mmol/L (98-107); SODIUM,NA 139 mmol/L (136-145)
--- NOTE | 2019-09-29 12:27 | CR ---
PROCEDURE INFORMATION: Exam: XR Chest, 1 View Exam date and time: 09/29/2019 12:15 PM Age: 24 years old Clinical indication: Other: Asthma TECHNIQUE: Imaging protocol: XR of the chest Views: 1 view. COMPARISON: CR Chest 1V Frontal 05/03/2018 1:05 PM FINDINGS: Lungs: Unremarkable. No consolidation. Pleural space: Unremarkable. No pleural effusion. No pneumothorax. Heart/Mediastinum: Unremarkable. No cardiomegaly. Bones/joints: Unremarkable. IMPRESSION: No acute findings.
== END 2019-09-29 12:45 ==
LOC: DL.ED 10:35
DX: J45.901 Unspecified asthma with (acute) exacerbation (principal); Z88.1 Allergy status to other antibiotic agents; Z88.0 Allergy status to penicillin; E66.9 Obesity, unspecified; Z87.891 Personal history of nicotine dependence; Z68.36 Body mass index [BMI] 36.0-36.9, adult; Z20.828 Contact with and (suspected) exposure to other viral communicable diseases
CPT/HCPCS: 36415; 71045; 80053; 80305-QW; 81001; 81025; 83735; 85025; 93005; 94640; 99285-25; J7613-GY; U0002

== ENCOUNTER 2019-10-01 12:17 | Emergency (ER) | payer MEDICAID ==
[2019-10-01] MEDS ORDERED: Naloxone 2 MG/2 ML Syringe ONE (12:21)
[2019-10-01] MEDS ORDERED: Sodium Chloride 0.9% 10 ML Syringe FLUSH PRN (12:24)
--- NOTE | 2019-10-01 12:24 | EDM.PDOC ---
ED HPI GENERAL MEDICAL PROBLEM - General Chief Complaint: Behavioral/Psych Stated Complaint: BINH SENT HER Time Seen by Provider: 10/01/19 12:20 Source of Information: Reports: Patient, Old Records, RN, RN Notes Reviewed History Limitations: Reports: Other (Panic with syncope) - History of Present Illness INITIAL COMMENTS - FREE TEXT/NARRATIVE: Pt sent from clinic by Dr. Jiménez with c/o shortness of breath and chest pain. Pt was just transferred from here to [facility] on 09/29/19 for asthma, which in hind sight appears to have been panic related. Pt has a long history of asthma, anxiety, and panic attacks with fainting. She was brought to ER by a nurse who reports pt was clutching her chest, complaining of abdominal pain, crying hysterically, and saying she couldn't breath, then went "unresponsive". Pt was able to stop her unresponsiveness to answer questions when I noted to the nurse that she had multiple recent needle track rocha in her arms, at which point the pt opened her eyes and clearly stated that she does not use drugs, and those rocha are from being in the hospital in [place], for asthma, and she was released home yesterday. She then began crying and hyperventilating again. Pt screamed that she cannot breath, but was with oxygen saturations of 100% on room air. 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 ANALYST: Reports: Breathing Treatments, Other Medication(s) (Prednisone) - Related Data Allergies Allergy/AdvReac Type Severity Reaction Status Date / Time amoxicillin trihydrate Allergy Intermediate Hives Verified 09/29/19 10:38 [From Augmentin] potassium clavulanate Allergy Intermediate Hives Verified 09/29/19 10:38 [From Augmentin] Penicillins Allergy Unknown Rash Verified 09/29/19 10:38 Home Meds: Home Meds Albuterol [IJD: Albuterol] 2.5 mg INH Q4H PRN 10/03/16 [History] Albuterol [Proventil HFA] 2 puff INH Q4H PRN 10/03/16 [History] medroxyPROGESTERone Acetate [Depo-Provera] 150 mg IM ASDIRECTED 10/03/16 [History] Budesonide/Formoterol Fumarate [Symbicort 160-4.5 Mcg Inhaler] 2 puff IH BID 09/29/19 [History] Past Medical History - Past Health History Medical/Surgical History: Denies Medical/Surgical History HEENT History: Reports: None Other HEENT History: wishdom teeth Cardiovascular History: Reports: None, Syncope Respiratory History: Reports: Asthma Gastrointestinal History: Reports: Cholelithiasis Genitourinary History: Reports: None NURSING ASSOCIATE History: Reports: Other NURSING ASSOCIATE History: one Musculoskeletal History: Reports: None Neurological History: Reports: None Psychiatric History: Reports: ADHD, Anxiety, Depression, Panic Attack, PTSD Endocrine/Metabolic History: Reports: Obesity/BMI 30+ Hematologic History: Reports: None Immunologic History: Reports: None Oncologic (Cancer) History: Reports: None Dermatologic History: Reports: None - Infectious Disease History Infectious Disease History: Reports: None - Past Surgical History Head Surgeries/Procedures: Reports: None Female Surgical History: Reports: Section Social & Family History - Family History Family Medical History: Noncontributory Cardiac: Reports: Hypertension Neurological: Reports: Alzheimers Disease Endocrine/Metabolic: Reports: Diabetes, type II Other Endocrine/Metabolic Family History: Mom and dad Oncologic: Reports: Breast - Caffeine Use Caffeine Use: Reports: None - Living Situation & Occupation Living situation: Reports: with Significant Other Occupation: Employed ED ROS GENERAL - Review of Systems Review Of Systems: Comprehensive ROS is negative, except as noted in HPI. ED EXAM, CPR - Physical Exam Exam: See Below Limited By: Other (Anxiety with panic attack) General Appearance: Anxious, Severe Distress, Obese Eye Exam: Bilateral Eye: EOMI, Normal Inspection, PERRL Ears: Normal External Exam Nose: Normal Inspection, Normal Mucosa, No Blood Throat/Mouth: Normal Inspection, Normal Lips, Normal Teeth, Normal Gums, Normal Oropharynx, Normal Voice, No Airway Compromise Head: Atraumatic, Normocephalic Neck: N, S, NON, FUL Respiratory Chest: No Respiratory Distress, Lungs Clear, Normal Breath Sounds, No Accessory Muscle Use, Chest Non-Tender, Other (Hyperventilating). No: Crackles, Rales, Rhonchi, Wheezing, Stridor, Pleural Rub, Retractions, Splinting Cardiovascular: Normal Pulse, Regular Rate, Rhythm, No Edema, No Gallop, No JVD, No Murmur, No Rub GI/Abdominal Exam: Normal Bowel Sounds, Soft, Non-Tender, No Organomegaly, No Distention, No Abnormal Bruit, No Mass, Pelvis Stable 3+: Dorsalis-Pedis (R), Dorsalis-Pedis (L), 4+: Right Carotid, Left Carotid, Radial (R), Radial (L) Extremities: Normal Inspection, Normal Range of Motion, Non-Tender, No Pedal Edema, Normal Capillary Refill Neurological: Other (Severe panic attack, no acute motor or sensory deficits) Skin Exam: Warm, Dry, Intact, Normal Color, No Rash EKG INTERPRETATION EKG Date: 10/01/19 Time: 12:24 Rhythm: Other Rate (Beats/Min): 77 [place]: Normal P-Wave: Present QRS: Other (normal with baseline wander in V3 - V6) ST-T: Normal QT: Normal Comparison: No Change Course - Vital Signs Last Recorded V/S: Last Vital Signs Temp 97.0 F 10/01/19 12:20 Pulse 68 10/01/19 12:20 Resp 34 H 10/01/19 12:20 BP 136/80 10/01/19 12:20 Pulse Ox 99 10/01/19 12:20 - Orders/Labs/Meds Orders: Active Orders 24 hr Category Date Time Status Blood Glucose Check, Bedside [RC] ONETIME Care 10/01/19 12:25 Active EKG 12 Lead [EKG Documentation Completion] [RC] STAT Care 10/01/19 12:25 Active Peripheral IV Care [RC] . DIRECTED Care 10/01/19 12:25 Active RT Aerosol Therapy [RC] ASDIRECTED Care 10/01/19 12:26 Active CULTURE BLOOD [BC] Stat Lab 10/01/19 12:43 Received CULTURE BLOOD [BC] Stat Lab 10/01/19 12:46 Received Sodium Chloride 0.9% [Saline Flush] Med 10/01/19 12:24 Active 10 ml FLUSH ASDIRECTED PRN Blood Culture x2 Reflex Set [OM.PC] Stat Oth 10/01/19 12:25 Ordered Peripheral IV Insertion Adult [OM.PC] Stat Oth 10/01/19 12:25 Ordered Medication Orders Sodium Chloride (Saline Flush) 10 ml FLUSH ASDIRECTED PRN PRN Reason: Keep Vein Open Last Admin: 10/01/19 12:47 Dose: 10 ml Documented by: ROB Labs: Laboratory Tests 10/01/19 10/01/19 10/01/19 Range/Units 12:20 12:20 12:20 WBC 15.0 H (5.0-10.0) 10^3/uL RBC 4.94 (4.2-5.4) 10^6/uL Hgb 15.1 (12.0-16.0) g/dL Hct 45.3 (37.0-47.0) % MCV 91.7 (80-100) fL MCH 30.6 (27.0-34.0) pg MCHC 33.3 (33.0-35.0) g/dL Plt Count 236 (150-450) 10^3/uL Neut % (Auto) 64.7 (42.2-75.2) % Lymph % (Auto) 24.2 (20.5-50.1) % [place] % (Auto) 9.8 H (2-8) % Eos % (Auto) 1.1 (1.0-3.0) % Baso % (Auto) 0.2 (0.0-1.0) % PT 9.9 (9.0-12.0) SEC INR 1.0 (0.9-1.2) APTT 23.3 (22.0-34.0) SEC D-Dimer, Quantitative < 100 (0-400) ng/mL Sodium 140 (136-145) mmol/L Potassium 3.4 L (3.5-5.1) mmol/L Chloride 106 (98-107) mmol/L Carbon Dioxide 26 (21-32) mmol/L Anion Gap 11.4 (7-13) mEq/L BUN 16 (7-18) mg/dL Creatinine 1.01 (0.55-1.02) mg/dL Est Cr Clr Drug Dosing TNP Estimated GFR (MDRD) > 60 BUN/Creatinine Ratio 15.8 (No establ ref range) Glucose 85 (74-99) mg/dL POC Glucose (70-105) mg/dl Lactic Acid (0.4-2.0) mmol/L Calcium 8.8 (8.5-10.1) mg/dL Magnesium (1.8-2.4) mg/dL Total Bilirubin 0.4 (0.2-1.0) mg/dL AST 16 (15-37) U/L ALT 23 (14-59) U/L Alkaline Phosphatase 77 (46-116) U/L Troponin I < 0.017 (0.000-0.056) ng/mL C-Reactive Protein (0.0-0.9) mg/dL Total Protein 7.3 (6.4-8.2) g/dL Albumin 4.0 (3.4-5.0) g/dL Globulin 3.3 Albumin/Globulin Ratio 1.2 Amylase 17 L (25-115) U/L Lipase 67 L (73-393) U/L TSH, Ultra Sensitive (0.36-3.74) uIU/mL Urine Color (YELLOW) Urine Appearance (CLEAR) Urine pH (5.0-9.0) Ur Specific Viola (1.005-1.030) Urine Protein (NEGATIVE) Urine Glucose (UA) (NEGATIVE) Urine Ketones (NEGATIVE) Urine Occult Blood (NEGATIVE) Urine Nitrite (NEGATIVE) Urine Bilirubin (NEGATIVE) Urine Urobilinogen (0.2-1.0) mg/dL Ur Leukocyte Esterase (NEGATIVE) Urine RBC /HPF Urine WBC (0-5/HPF) /HPF Ur Epithelial Cells (NOT SEEN) /HPF Urine Bacteria (0-FEW/HPF) /HPF Urine Mucus (NOT SEEN) /LPF Urine HCG, Qual Urine Opiates Screen (NEGATIVE) Ur Oxycodone Screen (NEGATIVE) Urine Methadone Screen (NEGATIVE) Ur Barbiturates Screen (NEGATIVE) U Tricyclic Antidepress (NEGATIVE) Ur Phencyclidine Scrn (NEGATIVE) Ur Amphetamine Screen (NEGATIVE) U Methamphetamines Scrn (NEGATIVE) Urine MDMA Screen (NEGATIVE) U Benzodiazepines Scrn (NEGATIVE) Urine Cocaine Screen (NEGATIVE) U Marijuana (THC) Screen (NEGATIVE) Ethyl Alcohol < 3 (0) mg/dL 10/01/19 10/01/19 10/01/19 Range/Units 12:20 12:43 13:07 WBC (5.0-10.0) 10^3/uL RBC (4.2-5.4) 10^6/uL Hgb (12.0-16.0) g/dL Hct (37.0-47.0) % MCV (80-100) fL MCH (27.0-34.0) pg MCHC (33.0-35.0) g/dL Plt Count (150-450) 10^3/uL Neut % (Auto) (42.2-75.2) % Lymph % (Auto) (20.5-50.1) % [place]oun % (Auto) (2-8) % Eos % (Auto) (1.0-3.0) % Baso % (Auto) (0.0-1.0) % PT (9.0-12.0) SEC INR (0.9-1.2) APTT (22.0-34.0) SEC D-Dimer, Quantitative (0-400) ng/mL Sodium (136-145) mmol/L Potassium (3.5-5.1) mmol/L Chloride (98-107) mmol/L Carbon Dioxide (21-32) mmol/L Anion Gap (7-13) mEq/L BUN (7-18) mg/dL Creatinine (0.55-1.02) mg/dL Est Cr Clr Drug Dosing Estimated GFR (MDRD) BUN/Creatinine Ratio (No establ ref range) Glucose (74-99) mg/dL POC Glucose (70-105) mg/dl Lactic Acid 2.5 H* (0.4-2.0) mmol/L Calcium (8.5-10.1) mg/dL Magnesium 2.0 (1.8-2.4) mg/dL Total Bilirubin (0.2-1.0) mg/dL AST (15-37) U/L ALT (14-59) U/L Alkaline Phosphatase (46-116) U/L Troponin I (0.000-0.056) ng/mL C-Reactive Protein 0.8 (0.0-0.9) mg/dL Total Protein (6.4-8.2) g/dL Albumin (3.4-5.0) g/dL Globulin Albumin/Globulin Ratio Amylase (25-115) U/L Lipase (73-393) U/L TSH, Ultra Sensitive 2.61 (0.36-3.74) uIU/mL Urine Color (YELLOW) Urine Appearance (CLEAR) Urine pH (5.0-9.0) Ur Specific Viola (1.005-1.030) Urine Protein (NEGATIVE) Urine Glucose (UA) (NEGATIVE) Urine Ketones (NEGATIVE) Urine Occult Blood (NEGATIVE) Urine Nitrite (NEGATIVE) Urine Bilirubin (NEGATIVE) Urine Urobilinogen (0.2-1.0) mg/dL Ur Leukocyte Esterase (NEGATIVE) Urine RBC /HPF Urine WBC (0-5/HPF) /HPF Ur Epithelial Cells (NOT SEEN) /HPF Urine Bacteria (0-FEW/HPF) /HPF Urine Mucus (NOT SEEN) /LPF Urine HCG, Qual Negative Urine Opiates Screen (NEGATIVE) Ur Oxycodone Screen (NEGATIVE) Urine Methadone Screen (NEGATIVE) Ur Barbiturates Screen (NEGATIVE) U Tricyclic Antidepress (NEGATIVE) Ur Phencyclidine Scrn (NEGATIVE) Ur Amphetamine Screen (NEGATIVE) U Methamphetamines Scrn (NEGATIVE) Urine MDMA Screen (NEGATIVE) U Benzodiazepines Scrn (NEGATIVE) Urine Cocaine Screen (NEGATIVE) U Marijuana (THC) Screen (NEGATIVE) Ethyl Alcohol (0) mg/dL 10/01/19 10/01/19 10/01/19 Range/Units 13:07 13:07 13:12 WBC (5.0-10.0) 10^3/uL RBC (4.2-5.4) 10^6/uL Hgb (12.0-16.0) g/dL Hct (37.0-47.0) % MCV (80-100) fL MCH (27.0-34.0) pg MCHC (33.0-35.0) g/dL Plt Count (150-450) 10^3/uL Neut % (Auto) (42.2-75.2) % Lymph % (Auto) (20.5-50.1) % [place] % (Auto) (2-8) % Eos % (Auto) (1.0-3.0) % Baso % (Auto) (0.0-1.0) % PT (9.0-12.0) SEC INR (0.9-1.2) APTT (22.0-34.0) SEC D-Dimer, Quantitative (0-400) ng/mL Sodium (136-145) mmol/L Potassium (3.5-5.1) mmol/L Chloride (98-107) mmol/L Carbon Dioxide (21-32) mmol/L Anion Gap (7-13) mEq/L BUN (7-18) mg/dL Creatinine (0.55-1.02) mg/dL Est Cr Clr Drug Dosing Estimated GFR (MDRD) BUN/Creatinine Ratio (No establ ref range) Glucose (74-99) mg/dL POC Glucose 90 (70-105) mg/dl Lactic Acid (0.4-2.0) mmol/L Calcium (8.5-10.1) mg/dL Magnesium (1.8-2.4) mg/dL Total Bilirubin (0.2-1.0) mg/dL AST (15-37) U/L ALT (14-59) U/L Alkaline Phosphatase (46-116) U/L Troponin I (0.000-0.056) ng/mL C-Reactive Protein (0.0-0.9) mg/dL Total Protein (6.4-8.2) g/dL Albumin (3.4-5.0) g/dL Globulin Albumin/Globulin Ratio Amylase (25-115) U/L Lipase (73-393) U/L TSH, Ultra Sensitive (0.36-3.74) uIU/mL Urine Color Yellow (YELLOW) Urine Appearance Slightly cloudy (CLEAR) Urine pH 5.5 (5.0-9.0) Ur Specific [place]ola 1.015 (1.005-1.030) Urine Protein Negative (NEGATIVE) Urine Glucose (UA) Negative (NEGATIVE) Urine Ketones Negative (NEGATIVE) Urine Occult Blood Moderate H (NEGATIVE) Urine Nitrite Negative (NEGATIVE) Urine Bilirubin Negative (NEGATIVE) Urine Urobilinogen 0.2 (0.2-1.0) mg/dL Ur Leukocyte Esterase Negative (NEGATIVE) Urine RBC 5-10 H /HPF Urine WBC 0-5 (0-5/HPF) /HPF Ur Epithelial Cells Rare (NOT SEEN) /HPF Urine Bacteria Not seen (0-FEW/HPF) /HPF Urine Mucus Rare (NOT SEEN) /LPF Urine HCG, Qual Urine Opiates Screen Negative (NEGATIVE) Ur Oxycodone Screen Negative (NEGATIVE) Urine Methadone Screen Negative (NEGATIVE) Ur Barbiturates Screen Negative (NEGATIVE) U Tricyclic Antidepress Negative (NEGATIVE) Ur Phencyclidine Scrn Negative (NEGATIVE) Ur Amphetamine Screen Negative (NEGATIVE) U Methamphetamines Scrn Negative (NEGATIVE) Urine MDMA Screen Negative (NEGATIVE) U Benzodiazepines Scrn Negative (NEGATIVE) Urine Cocaine Screen Negative (NEGATIVE) U Marijuana (THC) Screen Negative (NEGATIVE) Ethyl Alcohol (0) mg/dL Meds: Medications Generic Name Dose Route Start Last Admin Trade Name Freq PRN Reason Stop Dose Admin Sodium Chloride 10 ml 10/01/19 12:24 10/01/19 12:47 Saline Flush FLUSH 10 ml ASDIRECTED PRN Administration Keep Vein Open Discontinued Medications Generic Name Dose Route Start Last Admin Trade Name Freq PRN Reason Stop Dose Admin Albuterol/Ipratropium 3 ml 10/01/19 12:26 10/01/19 12:45 Duoneb 3.0-0.5 Mg/3 Ml NEB 10/01/19 12:27 3 ml ONETIME ONE Administration Lorazepam 1 mg 10/01/19 12:37 10/01/19 12:53 Ativan IVPUSH 10/01/19 12:38 1 mg ONETIME ONE Administration Lorazepam 1 mg 10/01/19 13:22 10/01/19 13:25 Ativan IVPUSH 10/01/19 13:23 1 mg ONETIME ONE Administration Lorazepam 1 mg 10/01/19 13:22 Ativan IVPUSH 10/01/19 13:23 ONETIME ONE Methylprednisolone Sodium Succinate 125 mg 10/01/19 12:26 10/01/19 12:35 Solu-Medrol IVPUSH 10/01/19 12:27 125 mg ONETIME ONE Administration Naloxone HCl Confirm 10/01/19 12:21 10/01/19 12:21 Narcan Administered 10/01/19 12:22 2 mg Dose Administration 2 mg .ROUTE .STK-MED ONE Naloxone HCl 2 mg 10/01/19 12:36 10/01/19 12:48 Narcan IM 10/01/19 12:37 Not Given ONETIME ONE Ondansetron HCl 4 mg 10/01/19 12:38 10/01/19 12:53 Zofran IV 10/01/19 12:39 4 mg ONETIME ONE Administration - Radiology Interpretation Free Text/Narrative:: CXR: no acute process per Rad. report. - Re-Assessments/Exams Free Text/Narrative Re-Assessment/Exam: 10/01/19 13:14 No response to Narcan. Panic relieved by Lorazepam. Normal physical exam, no significant abnormality on diagnostic work up. I thing this young lady would benefit from a mental health evaluation to help her with anxiety and panic attacks. Departure - Departure Time of Disposition: 13:54 Disposition: Home, Self-Care 01 Condition: Good Clinical Impression: Panic disorder, Paresthesia of bilateral legs - Discharge Information *PRESCRIPTION DRUG MONITORING PROGRAM REVIEWED*: Not Applicable *COPY OF PRESCRIPTION DRUG MONITORING REPORT IN PATIENT FABRIZIO: Not Applicable Instructions: Panic Attack, Living With Anxiety, Paresthesia Forms: ED Department Discharge Additional Instructions: Rx: Clonazepam 1mg Follow up in clinic tomorrow for recheck and further evaluation and treatment of anxiety and panic disorder. Follow up with a counselor or at the [facility] for help with anxiety control. Sepsis Event Note (ED) - Focused Exam Vital Signs: Vital Signs Temp Pulse Resp BP Pulse Ox 10/01/19 12:20 97.0 F 68 34 H 136/80 99 - My Orders Last 24 Hours: My Active Orders 10/01/19 12:24 Sodium Chloride 0.9% [Saline Flush] 10 ml FLUSH ASDIRECTED PRN 10/01/19 12:25 Blood Glucose Check, Bedside [RC] ONETIME EKG 12 Lead [EKG Documentation Completion] [RC] STAT Peripheral IV Care [RC] . DIRECTED Blood Culture x2 Reflex Set [OM.PC] Stat Peripheral IV Insertion Adult [OM.PC] Stat 10/01/19 12:26 RT Aerosol Therapy [RC] ASDIRECTED 10/01/19 12:43 CULTURE BLOOD [BC] Stat 10/01/19 12:46 CULTURE BLOOD [BC] Stat - Assessment/Plan Last 24 Hours: My Active Orders 10/01/19 12:24 Sodium Chloride 0.9% [Saline Flush] 10 ml FLUSH ASDIRECTED PRN 10/01/19 12:25 Blood Glucose Check, Bedside [RC] ONETIME EKG 12 Lead [EKG Documentation Completion] [RC] STAT Peripheral IV Care [RC] . DIRECTED Blood Culture x2 Reflex Set [OM.PC] Stat Peripheral IV Insertion Adult [OM.PC] Stat 10/01/19 12:26 RT Aerosol Therapy [RC] ASDIRECTED 10/01/19 12:43 CULTURE BLOOD [BC] Stat 10/01/19 12:46 CULTURE BLOOD [BC] Stat
[2019-10-01] MEDS ORDERED: Albuterol/Ipratropium 3.0-0.5 MG/3 ML Neb Soln NEB ONE (12:26)
[2019-10-01] MEDS ORDERED: methylPREDNISolone Sodium Succinate 125 MG/2 ML SDV IVPUSH ONE (12:26)
[2019-10-01] MEDS ORDERED: Naloxone 2 MG/2 ML Syringe IM ONE (12:36)
[2019-10-01] MEDS ORDERED: LORazepam 2 MG/ML SDV IVPUSH ONE ×3 (12:37→13:22)
[2019-10-01] MEDS ORDERED: Ondansetron 4 MG/2 ML SDV IV ONE (12:38)
--- NOTE | 2019-10-01 12:40 | CR ---
EXAMINATION: Chest 1V Frontal SEX: Female AGE: 24 years CLINICAL HISTORY: 24-year-old female emergency department with chest pain and respiratory distress (CODE BLUE) Interpretation (AP supine portable): No acute new cardiopulmonary abnormality since recent 29 September 2019 or earlier 03 May 2018 films. Normal cardiac silhouette and pulmonary vascularity. No vascular congestion, cephalization of flow, alveolar edema or dependent pleural effusion. (External production engineer leads) No new lung mass, hilar lymphadenopathy or focal lobar consolidation IE no infiltrate or atelectasis. Midline tracheal bronchial airway unremarkable. No pneumothorax or pneumomediastinum. CONCLUSION: Negative exam.
[2019-10-01 12:47] LABS: PTT,PARTIAL THROMBOPLSTIN TIME 23.3 SEC (22.0-34.0)
[2019-10-01 12:50] LABS: ANION GAP 11.4 mEq/L (7-13); CHLORIDE,CL 106 mmol/L (98-107); SODIUM,NA 140 mmol/L (136-145)
[2019-10-01 13:14] VITALS: BP 136/80; PULSE 68
== END 2019-10-01 14:25 | disposition home or self-care (01) ==
LOC: DL.ED 12:17
DX: F41.0 Panic disorder [episodic paroxysmal anxiety] (principal); R20.2 Paresthesia of skin; J45.909 Unspecified asthma, uncomplicated; E66.9 Obesity, unspecified; Z68.36 Body mass index [BMI] 36.0-36.9, adult; Z88.1 Allergy status to other antibiotic agents; Z88.0 Allergy status to penicillin; Z79.899 Other long term (current) drug therapy
CPT/HCPCS: 36415; 71045; 80053; 80305; 80307; 81001; 81025; 82150; 82962; 83605; 83690; 83735; 84443; 84484; 85025; 85379; 85610; 85730; 86140; 87040; 93005; 96374; 96375; 96376; 99285; J2060; J2310; J2405; J2930; J7620-GY

== ENCOUNTER 2020-04-27 09:39 | Emergency (ER) | payer MEDICAID ==
[2020-04-27 09:53] VITALS: BP 121/69; PULSE 96
[2020-04-27 10:20] LABS: ANION GAP 11.3 mEq/L (7-13); CHLORIDE,CL 102 mmol/L (98-107); SODIUM,NA 137 mmol/L (136-145)
--- NOTE | 2020-04-27 10:36 | EDM.PDOC ---
ED HPI GENERAL MEDICAL PROBLEM - General Stated Complaint: <20 WEEKS BLEEDING Time Seen by Provider: 04/27/20 10:25 Source of Information: Reports: Patient History Limitations: Reports: No Limitations - History of Present Illness INITIAL COMMENTS - FREE TEXT/NARRATIVE: This 24 yo female patient reports to the ED due to bleeding in . The patient reports she started to notice a small amount of blood when she wiped on Monday (04/21/20) - (04/23/20). The patient did have an ultrasound on 04/21/20 and was seen in [place] on 04/24/20. The patient was scheduled to have a follow-up appointment today with Dr. Jiménez, but ended up being 4 minutes late for her appointment and was sent to the ED instead. The patient reports the ultrasound could not rule out an ectopic and her HCG levels have been falling throughout last week. The patient is actually "looking for answers" today. Duration: Week(s):, Intermittent Location: Reports: Other Quality: Reports: Other Severity: Moderate Improves with: Reports: None Worsens with: Reports: None Context: Reports: Other Associated Symptoms: Reports: No Other Symptoms - Related Data Allergies Allergy/AdvReac Type Severity Reaction Status Date / Time amoxicillin trihydrate Allergy Intermediate Hives Verified 04/27/20 09:54 [From Augmentin] potassium clavulanate Allergy Intermediate Hives Verified 04/27/20 09:54 [From Augmentin] Penicillins Allergy Unknown Rash Verified 04/27/20 09:54 Home Meds: Home Meds Albuterol [IJD: Albuterol] 2.5 mg INH Q4H PRN 10/03/16 [History] Albuterol [Proventil HFA] 2 puff INH Q4H PRN 10/03/16 [History] Budesonide/Formoterol Fumarate [Symbicort 160-4.5 Mcg Inhaler] 2 puff IH BID 09/29/19 [History] Past Medical History - Past Health History Medical/Surgical History: Denies Medical/Surgical History HEENT History: Reports: None Other HEENT History: wishdom teeth Cardiovascular History: Reports: None, Syncope Respiratory History: Reports: Asthma Gastrointestinal History: Reports: Cholelithiasis Genitourinary History: Reports: None 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 Musculoskeletal History: Reports: None Neurological History: Reports: None Psychiatric History: Reports: ADHD, Anxiety, Depression, Panic Attack, PTSD Endocrine/Metabolic History: Reports: Obesity/BMI 30+ Hematologic History: Reports: None Immunologic History: Reports: None Oncologic (Cancer) History: Reports: None Dermatologic History: Reports: None - Infectious Disease History Infectious Disease History: Reports: None - Past Surgical History Head Surgeries/Procedures: Reports: None HEENT Surgical History: Reports: Other (See Below) Other HEENT Surgeries/Procedures: wisdom teeth removed Cardiovascular Surgical History: Reports: None Respiratory Surgical History: Reports: None GI Surgical History: Reports: None Female Surgical History: Reports: Section Endocrine Surgical History: Reports: None Musculoskeletal Surgical History: Reports: None Dermatological Surgical History: Reports: None Social & Family History - Family History Family Medical History: No Pertinent Family History Cardiac: Reports: Hypertension Neurological: Reports: Alzheimers Disease Endocrine/Metabolic: Reports: Diabetes, type II Other Endocrine/Metabolic Family History: Mom and dad Oncologic: Reports: Breast - Tobacco Use Tobacco Use Status *Q: Never Tobacco User Second Hand Smoke Exposure: No - Caffeine Use Caffeine Use: Reports: Coffee, Soda - Recreational Drug Use Recreational Drug Use: No - Living Situation & Occupation Living situation: Reports: with Significant Other Occupation: Employed ED ROS GENERAL - Review of Systems Review Of Systems: Comprehensive ROS is negative, except as noted in HPI. ED EXAM - Physical Exam Exam: See Below Exam Limited By: No Limitations General Appearance: Alert, WD/WN, Anxious, Mild Distress Eye Exam: Bilateral Eye: EOMI, Normal Inspection, PERRL Ears: Normal External Exam, Normal Canal, Hearing Grossly Normal, Normal TMs Nose: Normal Inspection, Normal Mucosa, No Blood Throat/Mouth: Normal Inspection, Normal Lips, Normal Teeth, Normal Gums, Normal Oropharynx, Normal Voice, No Airway Compromise Head: Atraumatic, Normocephalic Neck: Normal Inspection, Supple, Non-Tender, Full Range of Motion Respiratory/Chest: No Respiratory Distress, Lungs Clear, Normal Breath Sounds, No Accessory Muscle Use, Chest Non-Tender Cardiovascular: Normal Peripheral Pulses, Regular Rate, Rhythm, No Edema, No Gallop, No JVD, No Murmur, No Rub GI/Abdominal Exam: Normal Bowel Sounds, Soft, Non-Tender, No Organomegaly, No Distention, No Abnormal Bruit, No Mass, Pelvis Stable Rectal Exam: Deferred Back Exam: Normal Inspection, Full Range of Motion, NT Extremities: Normal Inspection, Normal Range of Motion, Non-Tender, Normal Capillary Refill, No Pedal Edema Neurological: Alert, Oriented, CN II-XII Intact, Normal Cognition, Normal Gait, Normal Reflexes, No Motor/Sensory Deficits Psychiatric: Normal Affect, Normal Mood Skin Exam: Warm, Dry, Intact, Normal Color, No Rash Lymphatic: No Adenopathy Course - Vital Signs Last Recorded V/S: Last Vital Signs Temp 35.9 C L 04/27/20 09:47 Pulse 96 04/27/20 09:47 Resp 16 04/27/20 09:47 BP 121/69 04/27/20 09:47 Pulse Ox 98 04/27/20 09:47 - Orders/Labs/Meds Orders: Active Orders 24 hr Category Date Time Status OB Ltd 1 or More Fetus [US] Urgent Exams 04/27/20 10:46 Ordered Labs: Laboratory Tests 04/27/20 04/27/20 04/27/20 Range/Units 09:54 09:54 09:54 WBC 7.8 (5.0-10.0) 10^3/uL RBC 4.72 (4.2-5.4) 10^6/uL Hgb 14.4 (12.0-16.0) g/dL Hct 43.1 (37.0-47.0) % MCV 91.3 (80-100) fL MCH 30.5 (27.0-34.0) pg MCHC 33.4 (33.0-35.0) g/dL Plt Count 235 (150-450) 10^3/uL Neut % (Auto) 55.0 (42.2-75.2) % Lymph % (Auto) 29.8 (20.5-50.1) % [place] % (Auto) 9.1 H (2-8) % Eos % (Auto) 5.7 H (1.0-3.0) % Baso % (Auto) 0.4 (0.0-1.0) % Sodium 137 (136-145) mmol/L Potassium 4.3 (3.5-5.1) mmol/L Chloride 102 (98-107) mmol/L Carbon Dioxide 28 (21-32) mmol/L Anion Gap 11.3 (7-13) mEq/L BUN 15 (7-18) mg/dL Creatinine 0.71 (0.55-1.02) mg/dL Est Cr Clr Drug Dosing 102.81 mL/min Estimated GFR (MDRD) > 60 BUN/Creatinine Ratio 21.1 (No establ ref range) Glucose 94 (74-99) mg/dL Calcium 8.8 (8.5-10.1) mg/dL Total Bilirubin 0.3 (0.2-1.0) mg/dL AST 13 L (15-37) U/L ALT 18 (14-59) U/L Alkaline Phosphatase 92 (46-116) U/L Total Protein 7.5 (6.4-8.2) g/dL Albumin 4.1 (3.4-5.0) g/dL Globulin 3.4 Albumin/Globulin Ratio 1.2 HCG, Quant 52 H (0-6) mIU/mL Urine Color (YELLOW) Urine Appearance (CLEAR) Urine pH (5.0-9.0) Ur Specific [place] (1.005-1.030) Urine Protein (NEGATIVE) Urine Glucose (UA) (NEGATIVE) Urine Ketones (NEGATIVE) Urine Occult Blood (NEGATIVE) Urine Nitrite (NEGATIVE) Urine Bilirubin (NEGATIVE) Urine Urobilinogen (0.2-1.0) mg/dL Ur Leukocyte Esterase (NEGATIVE) Urine RBC /HPF Urine WBC (0-5/HPF) /HPF Ur Epithelial Cells (NOT SEEN) /HPF Urine Bacteria (0-FEW/HPF) /HPF Urine Opiates Screen (NEGATIVE) Ur Oxycodone Screen (NEGATIVE) Urine Methadone Screen (NEGATIVE) Ur Barbiturates Screen (NEGATIVE) U Tricyclic Antidepress (NEGATIVE) Ur Phencyclidine Scrn (NEGATIVE) Ur Amphetamine Screen (NEGATIVE) U Methamphetamines Scrn (NEGATIVE) Urine MDMA Screen (NEGATIVE) U Benzodiazepines Scrn (NEGATIVE) Urine Cocaine Screen (NEGATIVE) U Marijuana (THC) Screen (NEGATIVE) 04/27/20 04/27/20 Range/Units 09:58 09:58 WBC (5.0-10.0) 10^3/uL RBC (4.2-5.4) 10^6/uL Hgb (12.0-16.0) g/dL Hct (37.0-47.0) % MCV (80-100) fL MCH (27.0-34.0) pg MCHC (33.0-35.0) g/dL Plt Count (150-450) 10^3/uL Neut % (Auto) (42.2-75.2) % Lymph % (Auto) (20.5-50.1) % [place] % (Auto) (2-8) % Eos % (Auto) (1.0-3.0) % Baso % (Auto) (0.0-1.0) % Sodium (136-145) mmol/L Potassium (3.5-5.1) mmol/L Chloride (98-107) mmol/L Carbon Dioxide (21-32) mmol/L Anion Gap (7-13) mEq/L BUN (7-18) mg/dL Creatinine (0.55-1.02) mg/dL Est Cr Clr Drug Dosing mL/min Estimated GFR (MDRD) BUN/Creatinine Ratio (No establ ref range) Glucose (74-99) mg/dL Calcium (8.5-10.1) mg/dL Total Bilirubin (0.2-1.0) mg/dL AST (15-37) U/L ALT (14-59) U/L Alkaline Phosphatase (46-116) U/L Total Protein (6.4-8.2) g/dL Albumin (3.4-5.0) g/dL Globulin Albumin/Globulin Ratio HCG, Quant (0-6) mIU/mL Urine Color Yellow (YELLOW) Urine Appearance Slightly cloudy (CLEAR) Urine pH 5.5 (5.0-9.0) Ur Specific [place] >= 1.030 (1.005-1.030) Urine Protein Negative (NEGATIVE) Urine Glucose (UA) Negative (NEGATIVE) Urine Ketones Negative (NEGATIVE) Urine Occult Blood Large H (NEGATIVE) Urine Nitrite Negative (NEGATIVE) Urine Bilirubin Negative (NEGATIVE) Urine Urobilinogen 0.2 (0.2-1.0) mg/dL Ur Leukocyte Esterase Negative (NEGATIVE) Urine RBC 5-10 H /HPF Urine WBC 0-5 (0-5/HPF) /HPF Ur Epithelial Cells Moderate H (NOT SEEN) /HPF Urine Bacteria Moderate H (0-FEW/HPF) /HPF Urine Opiates Screen Negative (NEGATIVE) Ur Oxycodone Screen Negative (NEGATIVE) Urine Methadone Screen Negative (NEGATIVE) Ur Barbiturates Screen Negative (NEGATIVE) U Tricyclic Antidepress Negative (NEGATIVE) Ur Phencyclidine Scrn Negative (NEGATIVE) Ur Amphetamine Screen Negative (NEGATIVE) U Methamphetamines Scrn Negative (NEGATIVE) Urine MDMA Screen Negative (NEGATIVE) U Benzodiazepines Scrn Negative (NEGATIVE) Urine Cocaine Screen Negative (NEGATIVE) U Marijuana (THC) Screen Negative (NEGATIVE) Departure - Departure Time of Disposition: 12:11 Disposition: Home, Self-Care 01 Condition: Fair Clinical Impression: Miscarriage - Discharge Information *PRESCRIPTION DRUG MONITORING PROGRAM REVIEWED*: Not Applicable *COPY OF PRESCRIPTION DRUG MONITORING REPORT IN PATIENT FABRIZIO: Not Applicable Instructions: Miscarriage, [id number] Forms: ED Department Discharge Care Plan Goals: The patient was advised of the examination, lab and ultrasound results during the visit. The patient was encouraged to follow-up with her primary care facility for continued evaluation and further management. If the patient has any additional symptoms or further concerns, the patient should either return to the emergency department or visit her primary care facility. Sepsis Event Note (ED) - Evaluation Sepsis Screening Result: No Definite Risk - Focused Exam Vital Signs: Vital Signs Temp Pulse Resp BP Pulse Ox 04/27/20 09:47 35.9 C L 96 16 121/69 98 - My Orders Last 24 Hours: My Active Orders 04/27/20 10:46 OB Ltd 1 or More Fetus [US] Urgent - Assessment/Plan Last 24 Hours: My Active Orders 04/27/20 10:46 OB Ltd 1 or More Fetus [US] Urgent
--- NOTE | 2020-04-27 11:44 | US ---
EXAMINATION: OB Transvaginal SEX: Female AGE: 24 years CLINICAL HISTORY: 24-year-old "gravid" female (positive test; serum quantitative HCG's only ranging from 37 on 21 April to 52 on 27 April (today). VAGINAL BLEEDING. Interpretation: Midline uterus normal size and anatomic configuration. Thickened 13.3 cm diameter proliferative appearing endometrium without sign of intra or extrauterine gestational sac/ pole. No endometrial polyp or fluid. Uterus with smooth contour/symmetric myometrial "mantle" measures 8.83 cm L x 4.7 cm W x 3.6 cm AP. Symmetric ovaries comparable size with septated cysts identified in both adnexa. Right ovary measures 4.18 cm L x 4.2 cm W x 3.06 cm AP diameter. (Cyst 2.9 x 3.2 cm) Left ovary measures 4.7 cm L x 2.7 cm W but 3.3 cm AP diameter. (2.9 x 3.8 cm) Trace of fluid in the dependent cul-de-sac but no abnormal adnexal mass lesion identified. CONCLUSION: Probable missed AB versus extremely early implantation. No current sonographic evidence of intra or extrauterine gestation (IUP). Possible cyst rupture.
== END 2020-04-27 12:15 | disposition home or self-care (01) ==
LOC: DL.ED 09:39
DX: O03.9 Complete or unspecified spontaneous abortion without complication (principal); J45.909 Unspecified asthma, uncomplicated; E66.9 Obesity, unspecified; Z88.0 Allergy status to penicillin; Z88.1 Allergy status to other antibiotic agents; Z79.899 Other long term (current) drug therapy
CPT/HCPCS: 36415; 76815; 76817; 80053; 80305-QW; 81001; 84702; 85025; 99283; 99284-25

== ENCOUNTER 2020-09-05 00:04 | Emergency (ER) | payer MEDICAID ==
[2020-09-05] MEDS ORDERED: Albuterol/Ipratropium 3.0-0.5 MG/3 ML Neb Soln NEB ONE (00:13)
[2020-09-05 00:19] VITALS: BP 102/58; PULSE 82
[2020-09-05 00:44] LABS: ANION GAP 14.7 mEq/L (7-13); CHLORIDE,CL 105 mmol/L (98-107); SODIUM,NA 142 mmol/L (136-145)
[2020-09-05] MEDS ORDERED: Ketorolac 30 MG/ML SDV IVPUSH ONE (01:28)
[2020-09-05] MEDS ORDERED: methylPREDNISolone Sodium Succinate 125 MG/2 ML SDV IVPUSH ONE (01:28)
[2020-09-05] MEDS ORDERED: Ondansetron 4 MG/2 ML SDV IVPUSH ONE (01:28)
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
== END 2020-09-05 03:21 | disposition home or self-care (01) ==
LOC: DL.ED 00:04
DX: M54.42 Lumbago with sciatica, left side (principal); M62.830 Muscle spasm of back; R20.2 Paresthesia of skin
CPT/HCPCS: 36415; 80053; 84484; 85025; 86140; 96374; 96375; 99284-25; J1885; J2405; J2930

== ENCOUNTER 2020-09-30 19:05 | Emergency (ER) | payer MEDICAID ==
[2020-09-30] MEDS ORDERED: Acetaminophen/HYDROcodone 325-10 MG Tab PO ONE (19:06)
[2020-09-30] MEDS ORDERED: Ondansetron 4 MG/2 ML SDV IVPUSH ONE (19:28)
[2020-09-30] MEDS ORDERED: fentaNYL 100 MCG/2 ML SDV IVPUSH ONE (19:28)
[2020-09-30 20:03] VITALS: BP 105/63; PULSE 95
[2020-09-30] MEDS ORDERED: HYDROmorphone 1 MG/ML Syringe IVPUSH ONE (20:37)
[2020-09-30] MEDS ORDERED: Acetaminophen/HYDROcodone 325-10 MG Tab ONE (21:13)
[2020-09-30] MEDS ORDERED: Mupirocin Oint 22 GM Tube ONE (21:13)
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
== END 2020-09-30 21:30 | disposition home or self-care (01) ==
LOC: DL.ED 19:05
DX: S80.01XA Contusion of right knee, initial encounter (principal); E66.9 Obesity, unspecified; Z68.37 Body mass index [BMI] 37.0-37.9, adult; Z88.0 Allergy status to penicillin; W39.XXXA Discharge of firework, initial encounter; W22.8XXA Striking against or struck by other objects, initial encounter
CPT/HCPCS: 96374; 96375; 99283; A9270; J1170; J2405; J3010

== ENCOUNTER 2021-02-02 09:11 | Observation (INO) | payer MEDICAID ==
[2021-02-02] MEDS ORDERED: Sodium Chloride 0.9% 10 ML Syringe FLUSH PRN (10:06)
[2021-02-02] MEDS ORDERED: Albuterol 0.083% 2.5 MG/3 ML Neb Soln NEB PRN (10:06)
[2021-02-02] MEDS: Ondansetron 4 MG/2 ML SDV IVPUSH PRN ×3 (10:52→22:09)
[2021-02-02] MEDS: Lactated Ringers 1,000 ML IV SCH ×3 (10:53→19:32)
[2021-02-02] MEDS ORDERED: cefTRIAXone 1 GM in Sodium Chloride 0.9% 50 ML IV ONE ×4 (11:00)
[2021-02-02] MEDS ORDERED: Phenazopyridine 95 MG Tab PO PRN (13:45)
[2021-02-02] MEDS: Acetaminophen 325 MG Tab PO PRN ×2 (14:09→19:31)
[2021-02-02] MEDS: Budesonide 0.5 MG/2 ML Neb Susp NEB SCH (18:35)
[2021-02-02] MEDS ORDERED: Lactated Ringers 1,000 ML IV SCH (22:30)
[2021-02-03] MEDS: Acetaminophen 325 MG Tab PO PRN (03:07)
[2021-02-03] MEDS: Ondansetron 4 MG/2 ML SDV IVPUSH PRN (07:14)
[2021-02-03] MEDS: Lactated Ringers 1,000 ML IV SCH (07:14)
[2021-02-03] MEDS: Budesonide 0.5 MG/2 ML Neb Susp NEB SCH (07:22)
[2021-02-03] MEDS ORDERED: Lactated Ringers 1,000 ML IV SCH (08:20)
--- NOTE | 2021-02-03 08:24 | PCM.SN.2 ---
<KeyshawnLayla - Last Filed: 02/03/21 08:18> - Free Text/Narrative Note: 02/03/21 No RHODA or leukocytosis on admission labs. Patient with 2.8L urine output over night. Flank pain improved, appetite to eat returned. Patient reports constipation since Monday01/29/21. Vitals wnl, per chart. Exam: Lungs CTAB. Heart RRR without murmur Skin warm, dry. Abdomen soft, tender in LLQ to palpation. Bowel sounds present in all 4 quadrants. Assessment: 25yo F with UTI in Constipation Asthma Plan: - Second dose of Rocephin 1g today. - Stop IV fluids - "Brown Cow" or Milk of Magnesia this AM - Expect D/C after urine culture shows sensitives - Discharge with Miralax for constipation - Complete home Keflex Rx - Keep follow up appointment w/ Dr. Jiménez Patient interviewed with . Plan discussed with Dr. Jiménez. Time Documentation <Emiel Jiménez - Last Filed: 02/03/21 11:17> - Free Text/Narrative Note: seen and agreed-DCW Time Documentation
[2021-02-03] MEDS ORDERED: Magnesium Hydroxide 400 MG/5 ML Susp 30 ML Cup PO ONE (08:29)
[2021-02-03] MEDS ORDERED: Sodium Chloride 0.9% 10 ML Syringe FLUSH PRN (08:31)
[2021-02-03] MEDS ORDERED: Escitalopram 10 MG Tab PO SCH (09:00)
[2021-02-03] MEDS ORDERED: cefTRIAXone 1 GM in Sodium Chloride 0.9% 50 ML IV SCH (09:00)
[2021-02-03] MEDS ORDERED: Prenatal Multivitamin with Calcium/Folic Acid/Iron Tab PO SCH (11:00)
[2021-02-03] MEDS ORDERED: Ondansetron 4 MG Tab.DIS PO SCH (12:00)
[2021-02-03 12:08] VITALS: BP 100/58; PULSE 68
--- NOTE | 2021-02-04 03:10 | DISCH ---
ADMISSION DIAGNOSES: 1. Complicated urinary tract infection. 2. Dehydration secondary to intractable vomiting. 3. Intrauterine at 13 weeks 2 days gestation. 4. Asthma. 5. Constipation. DISCHARGE DIAGNOSES: 1. Complicated urinary tract infection. 2. Dehydration secondary to intractable vomiting. 3. Intrauterine at 13 weeks 3 days gestation. 4. Asthma. 5. Constipation. HISTORY OF PRESENT ILLNESS: This is a 25-year-old G3, P1-0-1-1 female at 13 weeks 3 days gestation, presented 2 days ago to clinic for dysuria and increased urinary frequency. Urinalysis showed urinary tract infection. The patient was sent home with Keflex and Phenergan. The patient then presented 1 day ago again to the clinic for intractable vomiting, unable to take her Phenergan or Keflex. The patient was then admitted for observation and IV antibiotics. HOSPITAL COURSE: Hospital course has been good with no acute events. The patient was started on IV fluids and ceftriaxone. The patient was given Zofran p.r.n. for nausea and vomiting. She had 1 bout of emesis the 1st night, but was able to eat and drink her lunch, dinner, and breakfast. She has been urinating adequately. She did have pain with urination and was given acetaminophen and phenazopyridine. The patient did admit to having no bowel movement for the last 5 days. She was additionally getting milk of magnesia. Today, patient says she is feeling better and really wishes to go home. The patient was frequently nonadherent to asthma medications and so she received 2 Pulmicort nebulizer treatments which helped improve shortness of breath. PHYSICAL EXAMINATION: Vital Signs: Temperature 97.0, pulse 76, blood pressure 94/46, respiratory rate 20, oxygen 94 on room air. Appearance: Nondistressed female, lying in hospital bed. HEENT: Unremarkable. Cardiac: Regular rate and rhythm. No murmurs, gallops, or rubs. Respiratory: Clear to auscultation bilaterally. Good chest expansion. Abdomen: Soft, gravid, nontender. Bowel sounds normal. Slight tenderness to the left lower quadrant. Extremities: No swelling, erythema, or tenderness. DISCHARGE CONDITION: Good. DISPOSITION: Home. MEDICATIONS: 1. Oral Phenergan and Keflex which were prescribed on 02/01/2021. 2. vitamins with iron. INSTRUCTIONS: Take Phenergan as needed for nausea and vomiting. Hold off on Keflex until tomorrow when you return to clinic for last dose of ceftriaxone. FOLLOWUP: Return to clinic tomorrow for last dose of ceftriaxone with Dr. Jiménez at 1330 hours. Seen with medical student. Patient was personally seen and examined with the medical student practitioner student, Mary Paz. I reviewed the noted scribed on my behalf and necessary changes have been made to reflect my opinion on the history, exam, assessment, and plan [facility] /[id number] MTDD
== END 2021-02-03 14:20 | disposition home or self-care (01) ==
LOC: DL.MS 09:34
PROVIDERS: ADMIT Family Medicine; ATTEND Family Medicine
DX: O21.9 Vomiting of pregnancy, unspecified (principal); O23.41 Unspecified infection of urinary tract in pregnancy, first trimester; O99.281 Endocrine, nutritional and metabolic diseases complicating pregnancy, first trimester; J45.909 Unspecified asthma, uncomplicated; F41.9 Anxiety disorder, unspecified; Z88.1 Allergy status to other antibiotic agents; Z3A.13 13 weeks gestation of pregnancy; Z88.0 Allergy status to penicillin; Z88.8 Allergy status to other drugs, medicaments and biological substances; Z20.822 Contact with and (suspected) exposure to COVID-19
CPT/HCPCS: 94640; 96365; 96375; 96376; A9270-GY; G0378; G0379; J0696; J2405; J7120; U0002

== ENCOUNTER 2021-05-28 11:57 | Emergency (ER) | payer MEDICAID ==
[2021-05-28 12:44] VITALS: BP 120/55; PULSE 112
[2021-05-28 13:45] LABS: CORONAVIRUS COVID-19 NAA NEGATIVE (NEGATIVE); RESPIRATORY SYNCYTIAL VIR NAA NEGATIVE (NEGATIVE)
[2021-05-28 13:47] LABS: CHLORIDE,CL 102 mmol/L (98-107); SODIUM,NA 137 mmol/L (136-145)
[2021-05-28 14:00] LABS: ANION GAP 15.6 mEq/L (7-13)
[2021-05-28] MEDS: methylPREDNISolone Sodium Succinate 125 MG/2 ML SDV IVPUSH ONE (14:11)
[2021-05-28] MEDS: Ondansetron 4 MG/2 ML SDV IVPUSH ONE (14:12)
[2021-05-28] MEDS: Ondansetron 4 MG/2 ML SDV ONE (14:12)
[2021-05-28] MEDS: Albuterol/Ipratropium 3.0-0.5 MG/3 ML Neb Soln NEB ONE (14:12)
[2021-05-28 14:24] LABS: AMPHETAMINES,URINE NEGATIVE (NEGATIVE); BARBITURATES,URINE NEGATIVE (NEGATIVE); BENZODIAZEPINE,URINE NEGATIVE (NEGATIVE); MDMA (ECSTASY), URINE NEGATIVE (NEGATIVE); METHADONE,URINE NEGATIVE (NEGATIVE); METHAMPHETAMINES,URINE NEGATIVE (NEGATIVE); OPIATES,URINE NEGATIVE (NEGATIVE); OXYCODONE,URINE NEGATIVE (NEGATIVE); PHENCYCLIDINE,URINE NEGATIVE (NEGATIVE); TCA,URINE NEGATIVE (NEGATIVE)
== END 2021-05-28 15:36 | disposition home or self-care (01) ==
LOC: DL.ED 11:57
DX: O99.513 Diseases of the respiratory system complicating pregnancy, third trimester (principal); J45.21 Mild intermittent asthma with (acute) exacerbation; Z88.0 Allergy status to penicillin; Z20.822 Contact with and (suspected) exposure to COVID-19; Z3A.29 29 weeks gestation of pregnancy
CPT/HCPCS: 0241U; 36415; 80053; 80305; 81001; 83605; 83880; 85025; 86140; 87086; 96374; 96375; 99285; J2405; J2930; J7620-GY

== ENCOUNTER 2021-06-16 22:12 | Inpatient (IN) | payer MEDICAID ==
[~2021-06-16 22:12] MED LIST changes: +Betamethasone Acetate/Betamethasone Sod Phosphate 30 MG/5 ML MDV IM ONE; +Carboprost Tromethamine 250 MCG/1 ML Amp IM PRN; +Citric Acid/Sodium Citrate Solution 30 ML Cup PO ONE; -Ketorolac 30 MG/ML SDV IVPUSH ONE; +Methylergonovine 0.2 MG Tab PO PRN; -Ondansetron 4 MG/2 ML SDV IV ONE; +Oxytocin 10 Units/1 ML SDV IM PRN; -Oxytocin/Normal Saline 30 UNIT/500 ML BAG IV ONE; -Phenylephrine 1% 10 MG/ML SDV IV ONE; +Sodium Chloride 0.9% 10 ML Syringe FLUSH PRN; +Tranexamic Acid 1,000 MG in Sodium Chloride 0.9% 100 ML IV PRN; +ceFAZolin 2 GM in Premix Bag 1 BAG IV ONE; -ePHEDrine 50 MG/ML SDV IV ONE; -fentaNYL 100 MCG/2 ML SDV ONE
[2021-06-16] MEDS ORDERED: Lactated Ringers 1,000 ML IV SCH ×2 (22:15)
[2021-06-16] MEDS ORDERED: Oxytocin/Normal Saline 30 UNIT/500 ML BAG IV SCH (22:15)
[2021-06-16] MEDS ORDERED: hydrOXYzine HCl 25 MG Tab PO ONE (22:49)
[2021-06-16 22:59] LABS: BARBITURATE SCREEN,URINE NEGATIVE (NEGATIVE); BENZODIAZEPINES SCREEN,URINE NEGATIVE (NEGATIVE); TCA SCREEN,URINE NEGATIVE (NEGATIVE)
[2021-06-16 23:22] LABS: ANION GAP 15.5 mEq/L (7-13); CHLORIDE,CL 104 mmol/L (98-107); SODIUM,NA 137 mmol/L (136-145)
[2021-06-16] MEDS ORDERED: Fluconazole 100 MG Tab PO ONE (23:44)
[2021-06-16] MEDS ORDERED: metroNIDAZOLE 250 MG Tab PO SCH (23:45)
[2021-06-17] MEDS ORDERED: Sodium Chloride 0.9% 10 ML Syringe FLUSH SCH (09:00)
[2021-06-17 09:14] VITALS: BP 87/40; PULSE 72
[2021-06-18 11:46] LABS: C.TRACHOMATIS BY TMA Negative (Negative); N.GONORRHOEAE BY TMA Negative (Negative)
== END 2021-06-17 09:25 | disposition home or self-care (01) | DRG 832 ==
LOC: DL.OBCHECK 22:12 → DL.OB 06-17 03:37
PROVIDERS: ADMIT Family Medicine; ATTEND Family Medicine
DX: O60.03 Preterm labor without delivery, third trimester (principal); O99.413 Diseases of the circulatory system complicating pregnancy, third trimester; O23.593 Infection of other part of genital tract in pregnancy, third trimester; O99.343 Other mental disorders complicating pregnancy, third trimester; Z3A.32 32 weeks gestation of pregnancy; O99.013 Anemia complicating pregnancy, third trimester; D64.9 Anemia, unspecified; O99.283 Endocrine, nutritional and metabolic diseases complicating pregnancy, third trimester; F41.8 Other specified anxiety disorders; O99.513 Diseases of the respiratory system complicating pregnancy, third trimester; O99.333 Smoking (tobacco) complicating pregnancy, third trimester; F17.210 Nicotine dependence, cigarettes, uncomplicated; E86.0 Dehydration; F41.0 Panic disorder [episodic paroxysmal anxiety]; R55 Syncope and collapse; Z20.822 Contact with and (suspected) exposure to COVID-19
CPT/HCPCS: 36415; 51702; 76817; 80048; 80305-QW; 81003; 82565; 82570; 83615; 84156; 84450; 84460; 84520; 84550; 85025; 86850; 86900; 86901; 87081; 87210; 87491; 87591; 93005; A9270-GY; J0702; J7120; U0002

== ENCOUNTER 2021-07-23 08:57 | Inpatient (IN) | payer MEDICAID ==
[2021-07-23] MEDS ORDERED: diphenhydrAMINE 50 MG/ML SDV IVPUSH PRN (10:17)
[2021-07-23] MEDS ORDERED: Citric Acid/Sodium Citrate Solution 30 ML Cup PO ONE (10:17)
[2021-07-23] MEDS ORDERED: Carboprost Tromethamine 250 MCG/1 ML Amp IM PRN (10:17)
[2021-07-23] MEDS ORDERED: Naloxone 2 MG/2 ML Syringe IVPUSH PRN (10:17)
[2021-07-23] MEDS ORDERED: Methylergonovine 0.2 MG/1 ML Amp IM PRN (10:17)
[2021-07-23] MEDS ORDERED: Misoprostol 400 MCG (4 X 100 MCG TAB) RECTAL PRN (10:17)
[2021-07-23] MEDS ORDERED: Tranexamic Acid 1,000 MG in Sodium Chloride 0.9% 100 ML IV PRN (10:17)
[2021-07-23] MEDS ORDERED: Ondansetron 4 MG/2 ML SDV IVPUSH PRN (10:17)
[2021-07-23] MEDS ORDERED: Acetaminophen 325 MG Tab PO PRN (10:17)
[2021-07-23] MEDS ORDERED: ceFAZolin 2 GM in Premix Bag 1 BAG IV ONE (10:17)
[2021-07-23] MEDS ORDERED: ePHEDrine 50 MG/ML SDV IVPUSH PRN (10:17)
[2021-07-23] MEDS ORDERED: Oxytocin/Normal Saline 60 UNIT/1,000 ML BAG ONE (10:27)
[2021-07-23] MEDS ORDERED: Succinylcholine 200 MG/10 ML MDV ONE (10:30)
[2021-07-23] MEDS: Lactated Ringers 1,000 ML IV SCH ×5 (10:36→19:38)
[2021-07-23] MEDS ORDERED: Ondansetron 4 MG/2 ML SDV IV ONE (11:00)
[2021-07-23] MEDS ORDERED: Albuterol 0.083% 2.5 MG/3 ML Neb Soln INH ONE (11:00)
[2021-07-23] MEDS ORDERED: Sodium Chloride 0.9% 10 ML Syringe IV ONE (11:00)
[2021-07-23] MEDS ORDERED: Morphine PF 10 MG/10 ML SDV ONE (11:00)
[2021-07-23] MEDS ORDERED: Ketorolac 30 MG/ML SDV IVPUSH ONE (11:00)
[2021-07-23] MEDS ORDERED: Phenylephrine 1% 10 MG/ML SDV IV ONE (11:00)
[2021-07-23] MEDS ORDERED: Lactated Ringers 1,000 ML IV ONE (11:00)
[2021-07-23] MEDS ORDERED: Oxytocin/Normal Saline 30 UNIT/500 ML BAG IV SCH (11:42)
[2021-07-23] MEDS ORDERED: Albuterol 0.083% 2.5 MG/3 ML Neb Soln ONE (11:47)
[2021-07-23] MEDS ORDERED: Oxytocin/Normal Saline 30 UNIT/500 ML BAG IV ONE (14:26)
[2021-07-23] MEDS: Simethicone 80 MG Tab.Chew PO SCH ×2 (15:33→18:01)
[2021-07-23] MEDS: Ketorolac 30 MG/ML SDV IVPUSH SCH (18:02)
[2021-07-24] MEDS: Ketorolac 30 MG/ML SDV IVPUSH SCH ×2 (00:13→06:18)
[2021-07-24] MEDS: Acetaminophen/oxyCODONE 325-5 MG Tab PO PRN ×4 (01:02→21:50)
[2021-07-24] MEDS: Simethicone 80 MG Tab.Chew PO SCH ×5 (07:31→21:50)
[2021-07-24] MEDS: Prenatal Multivitamin with Calcium/Folic Acid/Iron Tab PO SCH ×2 (07:55→09:50)
[2021-07-24] MEDS: Docusate Sodium 100 MG Cap PO PRN ×2 (07:56→22:35)
[2021-07-24] MEDS: Fluticasone NASAL Spray 16 GM Bottle NASBOTH SCH ×2 (09:39→21:51)
[2021-07-24] MEDS: Albuterol 6.7 GM Inhaler INH PRN (09:40)
[2021-07-24] MEDS: Ibuprofen 800 MG Tab PO PRN ×2 (13:49→22:35)
[2021-07-25] MEDS: Acetaminophen/oxyCODONE 325-5 MG Tab PO PRN ×3 (02:00→13:40)
[2021-07-25] MEDS: Ibuprofen 800 MG Tab PO PRN ×3 (06:38→22:13)
[2021-07-25] MEDS: Simethicone 80 MG Tab.Chew PO SCH ×4 (08:37→22:13)
[2021-07-25] MEDS: Prenatal Multivitamin with Calcium/Folic Acid/Iron Tab PO SCH ×2 (08:38→08:39)
[2021-07-25] MEDS: Docusate Sodium 100 MG Cap PO PRN (08:39)
[2021-07-25] MEDS: Fluticasone NASAL Spray 16 GM Bottle NASBOTH SCH ×2 (08:40→21:00)
[2021-07-25] MEDS: Albuterol 6.7 GM Inhaler INH PRN (08:41)
[2021-07-25] MEDS: Escitalopram 10 MG Tab PO SCH (09:44)
[2021-07-26] MEDS: Acetaminophen/oxyCODONE 325-5 MG Tab PO PRN ×2 (05:03→10:27)
[2021-07-26] MEDS: Ibuprofen 800 MG Tab PO PRN (07:21)
[2021-07-26] MEDS: Fluticasone NASAL Spray 16 GM Bottle NASBOTH SCH (08:56)
[2021-07-26] MEDS: Docusate Sodium 100 MG Cap PO PRN (09:07)
[2021-07-26] MEDS: Simethicone 80 MG Tab.Chew PO SCH (09:07)
[2021-07-26] MEDS: Prenatal Multivitamin with Calcium/Folic Acid/Iron Tab PO SCH (09:08)
[2021-07-26] MEDS: Escitalopram 10 MG Tab PO SCH (09:08)
[2021-07-26 12:20] VITALS: BP 122/70; PULSE 68
== END 2021-07-26 12:15 | disposition home or self-care (01) | DRG 787 ==
LOC: DL.OBCHECK 08:57 → DL.OB 10:19 → OBSVTOIN 11:18
PROVIDERS: ADMIT Family Medicine; ATTEND Family Medicine
PROC: 10D00Z1 Extraction of Products of Conception, Low, Open Approach (ICD-10-PCS; principal; 2021-07-23)
DX: O34.211 Maternal care for low transverse scar from previous cesarean delivery (principal); D62 Acute posthemorrhagic anemia; Z37.0 Single live birth; O99.52 Diseases of the respiratory system complicating childbirth; J45.909 Unspecified asthma, uncomplicated; O99.344 Other mental disorders complicating childbirth; O99.02 Anemia complicating childbirth; Z20.822 Contact with and (suspected) exposure to COVID-19; O69.81X0 Labor and delivery complicated by cord around neck, without compression, not applicable or unspecified; Z88.1 Allergy status to other antibiotic agents; Z3A.37 37 weeks gestation of pregnancy; Z88.0 Allergy status to penicillin; O99.62 Diseases of the digestive system complicating childbirth; K80.80 Other cholelithiasis without obstruction; F90.9 Attention-deficit hyperactivity disorder, unspecified type; F41.1 Generalized anxiety disorder
CPT/HCPCS: 01961; 36415; 59025; 85027; 86850; 86900; 86901; A9270-GY; J0330; J0690; J1885; J2270; J2370; J2405; J2590; J3490; J7120; J7613-GY; U0002

== ENCOUNTER 2022-07-14 10:19 | Inpatient (IN) | payer MEDICAID ==
[~2022-07-14 10:19] MED LIST changes: +Acetaminophen 325 MG Tab PO PRN; +Acetaminophen/oxyCODONE 325-5 MG Tab PO PRN; -Betamethasone Acetate/Betamethasone Sod Phosphate 30 MG/5 ML MDV IM ONE; -Citric Acid/Sodium Citrate Solution 30 ML Cup PO ONE; -Methylergonovine 0.2 MG Tab PO PRN; +Methylergonovine 0.2 MG/1 ML Amp IM PRN; +Misoprostol 400 MCG (4 X 100 MCG TAB) RECTAL PRN; +Naloxone 2 MG/2 ML Syringe IVPUSH PRN; +Ondansetron 4 MG/2 ML SDV IVPUSH PRN; -Oxytocin 10 Units/1 ML SDV IM PRN; -Sodium Chloride 0.9% 10 ML Syringe FLUSH PRN; -ceFAZolin 2 GM in Premix Bag 1 BAG IV ONE; +diphenhydrAMINE 50 MG/ML SDV IVPUSH PRN; +ePHEDrine 50 MG/ML SDV IVPUSH PRN
[2022-07-14] MEDS ORDERED: ceFAZolin 2 GM Vial IVPUSH ONE (10:30)
[2022-07-14] MEDS ORDERED: Citric Acid/Sodium Citrate Solution 30 ML Cup PO ONE (10:30)
[2022-07-14] MEDS: Lactated Ringers 1,000 ML IV SCH ×4 (10:50→23:45)
[2022-07-14] MEDS ORDERED: Oxytocin/Normal Saline 30 UNIT/500 ML BAG ONE (11:44)
[2022-07-14] MEDS ORDERED: Oxytocin/Normal Saline 30 UNIT/500 ML BAG IV SCH (12:15)
[2022-07-14] MEDS: Prenatal Multivitamin with Calcium/Folic Acid/Iron Tab PO SCH (16:21)
[2022-07-14] MEDS: Simethicone 80 MG Tab.Chew PO SCH ×4 (16:21→20:25)
[2022-07-14] MEDS: Ferrous Sulfate 325 MG Tab PO SCH (16:21)
[2022-07-14] MEDS: Ketorolac 30 MG/ML SDV IVPUSH SCH ×2 (16:22→18:20)
[2022-07-14] MEDS: Acetaminophen/oxyCODONE 325-5 MG Tab PO PRN ×2 (17:42→23:37)
[2022-07-15] MEDS: Ketorolac 30 MG/ML SDV IVPUSH SCH ×2 (01:04→07:38)
[2022-07-15] MEDS: Acetaminophen/oxyCODONE 325-5 MG Tab PO PRN ×3 (05:57→19:39)
[2022-07-15] MEDS: Simethicone 80 MG Tab.Chew PO SCH ×4 (08:25→21:30)
[2022-07-15] MEDS: Docusate Sodium 100 MG Cap PO PRN ×2 (08:25→19:41)
[2022-07-15] MEDS: Ferrous Sulfate 325 MG Tab PO SCH (08:25)
[2022-07-15] MEDS: Prenatal Multivitamin with Calcium/Folic Acid/Iron Tab PO SCH (08:25)
[2022-07-15] MEDS ORDERED: Iopamidol 755 Mg/ML 100 ML Bottle IVPUSH ONE (15:18)
[2022-07-15] MEDS: Ibuprofen 800 MG Tab PO PRN (19:40)
[2022-07-16] MEDS: Acetaminophen/oxyCODONE 325-5 MG Tab PO PRN (00:42)
[2022-07-16] MEDS: Ibuprofen 800 MG Tab PO PRN (05:47)
[2022-07-16] MEDS: Docusate Sodium 100 MG Cap PO PRN (08:25)
[2022-07-16] MEDS: Simethicone 80 MG Tab.Chew PO SCH (08:25)
[2022-07-16] MEDS: Prenatal Multivitamin with Calcium/Folic Acid/Iron Tab PO SCH (08:25)
[2022-07-16] MEDS: Ferrous Sulfate 325 MG Tab PO SCH (08:25)
[2022-07-16 08:59] VITALS: BP 110/63; PULSE 66
== END 2022-07-16 10:30 | disposition home or self-care (01) | DRG 787 ==
LOC: DL.OB 10:19 → OBSVTOIN 12:11 → DL.OB 12:11
PROVIDERS: ADMIT Family Medicine; ATTEND Family Medicine
PROC: 10D00Z1 Extraction of Products of Conception, Low, Open Approach (ICD-10-PCS; principal; 2022-07-14)
DX: O34.211 Maternal care for low transverse scar from previous cesarean delivery (principal); D62 Acute posthemorrhagic anemia; O99.52 Diseases of the respiratory system complicating childbirth; J45.20 Mild intermittent asthma, uncomplicated; O99.214 Obesity complicating childbirth; O90.81 Anemia of the puerperium; Z87.891 Personal history of nicotine dependence; Z3A.39 39 weeks gestation of pregnancy; Z37.0 Single live birth; Z88.8 Allergy status to other drugs, medicaments and biological substances; Z88.0 Allergy status to penicillin
CPT/HCPCS: 01961; 36415; 51702; 71275; 85027; 86850; 86900; 86901; A9270-GY; J0690; J1885; J2590; J7120; Q9967

== ENCOUNTER 2023-08-03 09:59 | Inpatient (IN) | payer MEDICAID ==
[~2023-08-03 09:59] MED LIST changes: -Acetaminophen 325 MG Tab PO PRN; -Ondansetron 4 MG/2 ML SDV IVPUSH PRN
[2023-08-03 10:17] LABS: HEMATOCRIT 40.9 % (37.0-47.0); HEMOGLOBIN 13.5 g/dL (12.0-16.0); MEAN CORPUSCULAR HEMOGLOBIN 30.7 pg (27.0-34.0); RED BLOOD CELL COUNT 4.4 10^6/uL (4.2-5.4)
[2023-08-03] MEDS ORDERED: Oxytocin/Normal Saline 30 UNIT/500 ML BAG ONE (11:32)
[2023-08-03] MEDS: Oxytocin/Normal Saline 30 UNIT/500 ML BAG IV SCH (12:33)
[2023-08-03] MEDS: Lactated Ringers 1,000 ML IV SCH (12:33)
[2023-08-03] MEDS: Ondansetron 4 MG/2 ML SDV IVPUSH PRN (18:11)
[2023-08-03] MEDS: Ketorolac 30 MG/ML SDV IVPUSH SCH ×2 (18:11→20:26)
[2023-08-03] MEDS: Simethicone 80 MG Tab.Chew PO SCH (18:12)
[2023-08-03] MEDS: ceFAZolin 2 GM Vial IVPUSH ONE (21:21)
[2023-08-03] MEDS: Docusate Sodium 100 MG Cap PO PRN (21:41)
[2023-08-04 06:14] LABS: HEMATOCRIT 29.1 % (37.0-47.0); HEMOGLOBIN 9.5 g/dL (12.0-16.0); MEAN CORPUSCULAR HEMOGLOBIN 30.9 pg (27.0-34.0); MEAN CORPUSCULAR HGB CONC 32.6 g/dL (33.0-35.0); MEAN CORPUSCULAR VOLUME 94.8 fL (80-100); RED BLOOD CELL COUNT 3.07 10^6/uL (4.2-5.4); WHITE BLOOD CELL COUNT,WBC 9.3 10^3/uL (5.0-10.0)
[2023-08-04] MEDS: Prenatal Multivitamin with Calcium/Folic Acid/Iron Tab PO SCH (09:22)
[2023-08-04] MEDS: Ibuprofen 800 MG Tab PO PRN (15:20)
[2023-08-04] MEDS: Acetaminophen 325 MG Tab PO PRN (15:21)
[2023-08-04] MEDS: Acetaminophen/oxyCODONE 325-5 MG Tab PO PRN (22:00)
[2023-08-05 08:09] VITALS: BP 117/68; PULSE 75
== END 2023-08-05 09:36 | disposition home or self-care (01) | DRG 788 ==
LOC: DL.OB 09:59
PROVIDERS: ADMIT Family Medicine; ATTEND Family Medicine
PROC: 10D00Z1 Extraction of Products of Conception, Low, Open Approach (ICD-10-PCS; principal; 2023-08-03 12:00)
DX: O34.211 Maternal care for low transverse scar from previous cesarean delivery (principal); Z3A.39 39 weeks gestation of pregnancy; O99.52 Diseases of the respiratory system complicating childbirth; J45.909 Unspecified asthma, uncomplicated; O69.81X0 Labor and delivery complicated by cord around neck, without compression, not applicable or unspecified; Z37.0 Single live birth
CPT/HCPCS: 01961; 36415; 51702; 59025; 85027; 86850; 86900; 86901; 94010; A9270-GY; J1885; J2405; J2590; J7120